=== PATIENT | female | born 1950 | race Caucasian/White ===

== ENCOUNTER 2016-09-08 05:30 | Inpatient (IN) | payer OTHER ==
--- NOTE | 2016-09-06 15:14 | HPE ---
DATE OF ADMISSION: 09/08/2016 CHIEF COMPLAINT: Right knee arthritis. HISTORY OF PRESENT ILLNESS: This is a pleasant 66-year-old female with progressively worsening right knee pain and stiffness. She has failed to improve with conservative treatment. She has elected for surgery for her continued symptoms. She has pain with weightbearing activities and her activities of daily living. X-rays of her knee are notable for advanced osteoarthritis of the right knee joint. She has consented for a right total knee arthroplasty by Dr. Irvin Ramirez. Medical optimization was performed by Kimani HEMPHILL. ALLERGIES: None. CURRENT MEDICATIONS: - atenolol 100 mg a day - Lipitor 40 mg a day - hydrochlorothiazide 10 mg - aspirin 81 mg a day PAST MEDICAL HISTORY: Includes hypertension and high cholesterol. 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 PAST SURGICAL HISTORY: Includes left hip replacement two years ago. FAMILY HISTORY: Noncontributory. REVIEW OF SYSTEMS: This patient denies chest pain, heart palpitations, cough, wheezing, difficulty breathing and shortness of breath. She denies abdominal pain, nausea, vomiting, diarrhea or constipation. She denies recent upper respiratory infection or urinary tract infection symptoms. She does complain of persistent pain in her right knee and pain with weightbearing activities in her right knee. PHYSICAL EXAMINATION: GENERAL: She is a well-nourished, well-developed, in no acute distress, adult female patient. She walks with a moderate limp favoring her right lower extremity. She is not using assistive devices. VITAL SIGNS: She is 5 feet, 3-1/2 inches tall, weighs 150 pounds with a temperature of 98.6, blood pressure 110/78, pulse of 80 and respirations of 16. NECK: Supple without adenopathy or jugular venous distension. There were no carotid bruits appreciated upon auscultation. LUNGS: Clear to auscultation without rales or wheeze throughout. HEART: Regular rate and rhythm. ABDOMEN: Bowel sounds were present. EXTREMITIES: Examination of the knee revealed intact skin. She has decreased range of motion secondary to pain and stiffness. The limb is neurovascularly intact. LABORATORY DATA: Chest x-ray showed no acute cardiopulmonary disease processes. EKG shows sinus rhythm at 69 beats per minute. CBC was within normal limits. Sedimentation rate was 10, glucose 99, BUN 28, creatinine 0.90, sodium 142, potassium 3.8. UA showed trace ketones, 6 white blood cells, 1+ bacteria, otherwise within normal limits with a specific gravity of 1.027. Prothrombin time 13.1, INR 0.98. Nasal and sinus culture showed normal christian. Urine culture showed a contaminated specimen. IMPRESSION: Symptomatic arthritis of the right knee. PLAN: Consented for a right total knee arthroplasty by Dr. Irvin Ramirez.
[~2016-09-08] VITALS: Ht 162.6 cm; Wt 67.1 kg
[~2016-09-08 05:30] MED LIST: ALEV1TAB PO; ALEV220T26 PO; ASPI81TA11; ATEN100T PO; COUM2.5T11 PO; HYDR25TAB PO; LIPI20TA PO; NUCY50TA9 PO; REGL10TA6 PO; TRAM50TA2 PO; TYLE325T5 PO; TYLE500T78 PO; sleep aid OR
[2016-09-08] MEDS ORDERED: LR 1,000 ML IV SCH ×2 (06:00→10:30)
[2016-09-08] MEDS ORDERED: PERCOCET 5MG/325MG TAB PO ONE (06:00)
[2016-09-08] MEDS ORDERED: CelecoXIB 400 MG CAP PO ONE (06:00)
[2016-09-08] MEDS ORDERED: PREGABALIN 75 MG CAP(LYRICA) PO ONE (06:00)
[2016-09-08] MEDS ORDERED: ceFAZolin 1GM INJ (J0690) As Ordered ONE (06:55)
[2016-09-08] MEDS ORDERED: BUPIVACAINE HCL 0.25% 30 ML VIAL As Ordered ONE (07:16)
[2016-09-08] MEDS ORDERED: BUPIVACAINE/EPIN 0.25% 30 ML VIAL As Ordered ONE (07:16)
[2016-09-08] MEDS ORDERED: EPINEPHrine 1MG/ML INJ 30ML MD-VIAL As Ordered ONE (07:17)
[2016-09-08] MEDS ORDERED: TRANEXAMIC ACID 100 MG/ML 10ML VIAL As Ordered ONE (07:17)
[2016-09-08] MEDS ORDERED: fentaNYL 100 MCG/2 ML INJECTION (J3010) As Ordered ONE (07:18)
[2016-09-08] MEDS: MIDAZOLAM INJ 2 MG/2 ML VIAL (J2250) IV PRN ×2 (07:36→07:38)
[2016-09-08] MEDS ORDERED: fentaNYL 100 MCG/2 ML INJECTION (J3010) IV PRN ×2 (08:15→10:30)
[2016-09-08] MEDS ORDERED: PHENYLephrine HCL 500 MCG/5 ML (100MCG/ML) SYRINGE (J2370) As Ordered ONE (08:28)
[2016-09-08] MEDS ORDERED: PROPOFOL 200 MG/20 ML VIAL As Ordered ONE (08:28)
[2016-09-08] MEDS ORDERED: ePHEDrine SULFATE 25 MG/5 ML(5MG/ML) SYRINGE As Ordered ONE ×2 (08:28→08:36)
[2016-09-08] MEDS ORDERED: ONDANSETRON 4MG/2ML VIAL (J2405) As Ordered ONE (08:28)
[2016-09-08] MEDS ORDERED: LIDOCAINE 2% INJ 100 MG/5 ML SDV (FOR ANES.) As Ordered ONE (08:28)
[2016-09-08] MEDS ORDERED: MIDAZOLAM INJ 2 MG/2 ML VIAL (J2250) As Ordered ONE (08:28)
[2016-09-08] MEDS ORDERED: BUPIVACAINE HCL 0.25% 30 ML VIAL XX ONE (08:48)
[2016-09-08] MEDS ORDERED: TRANEXAMIC ACID 100 MG/ML 10ML VIAL XX ONE (08:48)
[2016-09-08] MEDS ORDERED: ceFAZolin 1GM INJ (J0690) IR ONE (08:48)
[2016-09-08] MEDS ORDERED: EPINEPHrine INJ 1 MG/ML 1ML VIAL/AMP XX ONE (08:48)
[2016-09-08] MEDS ORDERED: BUPIVACAINE/EPIN 0.25% 30 ML VIAL XX ONE (08:48)
[2016-09-08] MEDS ORDERED: fentaNYL 100 MCG/2 ML INJECTION (J3010) XX ONE (08:48)
[2016-09-08] MEDS ORDERED: hydroCHLOROthiazide 25 MG TAB PO SCH (09:00)
[2016-09-08] MEDS ORDERED: HYDROmorphone HCL 1 MG/ML SYRINGE (J1170) IV PRN (10:30)
[2016-09-08] MEDS ORDERED: PERCOCET 5MG/325MG TAB PO PRN (10:30)
[2016-09-08] MEDS ORDERED: MORPHINE 2 MG/ML 1ML SYRINGE IV PRN (10:30)
[2016-09-08] MEDS ORDERED: LIDOCAINE 1% MDV 20ML VIAL ONE (10:30)
[2016-09-08] MEDS: D5W/0.45% SODIUM CHLORIDE 1,000 ML IV SCH ×2 (10:30→20:42)
[2016-09-08] MEDS ORDERED: ROPIvacaine 0.5% 30 ML INJECTION (J2795) ONE (10:30)
[2016-09-08] MEDS ORDERED: PATIENT IS CURRENTLY ON AN ON-Q PAIN BUSTER PAIN RELIEF SYSTEM XX SCH (10:30)
[2016-09-08] MEDS ORDERED: ONDANSETRON 4MG/2ML VIAL (J2405) IV PRN (10:30)
[2016-09-08] MEDS ORDERED: MEPIVACAINE HCL 1.5% 30 ML VIAL (J0670) ONE (10:30)
--- NOTE | 2016-09-08 11:07 | CR.PDOC ---
[facility] Consultation Consultation DATE OF CONSULTATION: 09/08/15 PRIMARY CARE PHYSICIAN: Brittany Nichols NP REFERRING PROVIDER: Dr. Ramirez ATTENDING PHYSICIAN: Dr. Ramirez REASON FOR CONSULTATION/CHIEF COMPLAINT: Medical management. HISTORY OF PRESENT ILLNESS: Patient admitted to Dr. Ramirez's service for elective total right knee replacement. The surgery was performed today without any significant complications. Family medicine was consulted for medical management. The patient was seen bedside post-op. She states that she has no acute complaints at this time. ALLERGIES: Please see below. HOME MEDICATIONS: Please see below. PAST MEDICAL HISTORY: HTN Hyperlipidemia Heart Murmur left hip arthritis . PAST SURGICAL HISTORY: Total right knee 09/2016 Tonsillectomy and Adenoids 1956 BTL 1993 left ESTEPHANIA 2013 Colonoscopy 2015 FAMILY HISTORY: Father: alive, unknown Mother: alive, unknown Siblings: alive Son(s): alive, Two sons have HTN Daughter(s): alive Paternal Grand Father: unknown, unknown Paternal Grand Mother: unknown, unknown Maternal Grand Father: , unknown Maternal Grand Mother: , unknown 1 brother(s) , 1 sister(s) - healthy. 3 son(s) , 1 daughter(s) - healthy. pt denies any known family h/o cancer pt is a foster child. SOCIAL HISTORY: Tobacco Use: nonsmoker Recreational drug use denies. Caffeine >5/day coffee. 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 Marital Status: ., Single. Pets: cat. Language: KITTITIAN. Learning Barriers / Special Needs Change from Last Visit? No Barriers to Learning? No Hearing Impaired? No Vision Impaired? No Cognitively Impaired? No Readiness to Learn? Yes Learning Preferences? No Learning Capabilities Present? Yes Emotional Barriers? No Special Devices? No Housing: Self. : yes, single/ . REVIEW OF SYSTEMS: CONSTITUTIONAL: denies fever, chills. HEENT: denies acute vision changes, e.g. flashes, dark spots, double vision. CARDIOVASCULAR: denies chest pain, palpitations. RESPIRATORY: denies SOB or cough. GENITOURINARY: denies dysuria or hematuria. MUSCULOSKELETAL: Previous chronic right knee pain - still numb post op. GASTROINTESTINAL: denies nausea, vomiting, diarrhea, constipation, hematochezia , or melena. NEUROLOGICAL: no focal deficits PSYCHIATRIC: denies depression/anxiety HEMATOLOGIC/LYMPHATIC: no easy bruising or bleeding. PHYSICAL EXAMINATION: VITAL SIGNS: Please see below. GENERAL APPEARANCE: no acute distress. HEENT: EOMI bilat, no sclera icterus. RESPIRATORY: CTA bilat. CARDIOVASCULAR: RRR no murmur,rubs, or gallops appreciated. ABDOMEN: soft, NT, non-distended, positive bowel sounds. EXTREMITIES: no edema, pedal pulses 2+ bilat. NEUROLOGICAL: CN 2-12 grossly intact. PSYCHIATRIC: appropriate mood and affect. LABORATORY DATA: Please see below. ASSESSMENT/PLAN: 1. Total right knee replacement - Patient is now post-op. Will defer pain and post-op management to ortho team. 2. Hypertension - Will restart the patient's home antihypertensives post op. 3. Hyperlipidemia - Will restart her home statin therapy. 4. Heart murmur is listed on her past medical history in [facility], however none was documented on her recent pre-op exam and none appreciated on today's exam either. Vital Signs/I&O Vital Signs Date Time Temp Pulse Resp B/P Pulse Ox O2 Delivery O2 Flow Rate FiO2 09/08/16 10:40 81 18 128/63 97 Room Air 09/08/16 10:25 96.8 09/08/16 07:46 2 Allergies Coded Allergies: No Known Drug Allergy (Verified Allergy, Unknown, 06/26/14) Home Medications Scheduled Atenolol (Atenolol) 100 Mg Tab 100 MG PO QHS (Reported) Atorvastatin Calcium (Lipitor) 20 Mg Tab 40 MG PO QHS (Reported) Hydrochlorothiazide (Hydrochlorothiazide) 25 Mg Tab 25 MG PO DAILY (Reported) Scheduled PRN (Aleve Pm 220-25 mg) 1 Tab Tab 2 TAB PO PRN PRN PRN PAIN (Reported) Acetaminophen (Tylenol Extra Strength) 500 Mg Tab 1,000 MG PO PRN PRN PRN PAIN ( Reported) Tramadol HCl (Tramadol HCl) 50 Mg Tab 50 MG PO PRN PRN PRN PAIN (Reported) Miscellaneous Medications Aspirin (Aspirin Low Dose) 81 Mg Tab (Reported) GME ATTESTATION GME ATTESTATION My preceptor for this patient encounter was physically present in the building during the encounter and was fully available. As needed, all aspects of the patient interview, examination, medical decision making process, and medical care plan development were reviewed and approved by the preceptor. Preceptor is aware and concurs with the plan as stated in the body of this note and will attest to such by his/her cosignature. BABAR MANZANARES DO Sep 08, 2016 11:07
[2016-09-08 13:30] VITALS: BP 122/64
[2016-09-08 14:00] VITALS: BP 127/68
[2016-09-08 15:00] VITALS: BP 129/69
[2016-09-08] MEDS: PROMETHAZINE INJ 25 MG/ML VIAL (J2550) IV PRN ×2 (15:29→22:27)
[2016-09-08] MEDS: HYDROmorphone HCL 1 MG/ML SYRINGE (J1170) IV PRN ×3 (15:29→18:51)
[2016-09-08] MEDS: DOCUSATE SODIUM 100 MG CAP PO SCH ×2 (15:35→20:43)
[2016-09-08 16:00] VITALS: BP 133/65
[2016-09-08 17:00] VITALS: BP 128/68
[2016-09-08] MEDS ORDERED: WARFARIN SOD 1 MG TAB PO ONE (17:00)
[2016-09-08] MEDS ORDERED: MIRALAX *UNIT DOSE* 17GM PACKET PO PRN (18:45)
[2016-09-08] MEDS: ATORVASTATIN 20 MG TAB PO SCH (20:42)
[2016-09-08] MEDS: ATENOLOL 50 MG TAB PO SCH (20:42)
[2016-09-08] MEDS: hydroCHLOROthiazide 25 MG TAB PO SCH (20:43)
[2016-09-08] MEDS: PERCOCET 5MG/325MG TAB PO PRN (21:59)
[2016-09-08 22:00] VITALS: BP 143/67
[2016-09-09 02:00] VITALS: BP 123/61
[2016-09-09] MEDS: D5W/0.45% SODIUM CHLORIDE 1,000 ML IV SCH (03:10)
[2016-09-09 06:00] VITALS: BP 120/59
[2016-09-09 06:59] LABS: MEAN CORPUSCULAR HEMOGLOBIN 30.5 pg (27.0-33.0); MEAN CORPUSCULAR HGB CONC 33.6 g/dl (32.0-36.5); MEAN CORPUSCULAR VOLUME 90.6 fl (80.0-96.0); RED CELL DISTRIBUTION WIDTH 13.2 % (11.5-14.5)
[2016-09-09 07:17] LABS: ALBUMIN 3.4 GM/DL (3.2-5.2); ALBUMIN/GLOBULIN RATIO 1.13 (1.00-1.93); ALKALINE PHOSPHATASE 73 U/L (45-117); ALT/SGPT 40 U/L (12-78); ANION GAP 9 MEQ/L (8-16); AST/SGOT 22 U/L (15-37); BILIRUBIN,TOTAL 0.3 MG/DL (0.2-1.0); BLOOD UREA NITROGEN 13 MG/DL (7-18); CALCIUM LEVEL 8.9 MG/DL (8.8-10.2); CARBON DIOXIDE LEVEL 28 MEQ/L (21-32); CHLORIDE LEVEL 103 MEQ/L (98-107); CREATININE FOR GFR 0.74 MG/DL (0.55-1.02); GLOMERULAR FILTRATION RATE > 60.0 (>45); GLUCOSE, FASTING 112 MG/DL (80-110); POTASSIUM SERUM 3.6 MEQ/L (3.5-5.1); SODIUM LEVEL 140 MEQ/L (136-145); TOTAL PROTEIN 6.4 GM/DL (6.4-8.2)
[2016-09-09] MEDS: PERCOCET 5MG/325MG TAB PO PRN ×4 (08:23→21:29)
[2016-09-09] MEDS: MIRALAX *UNIT DOSE* 17GM PACKET PO SCH (09:00)
[2016-09-09] MEDS: DOCUSATE SODIUM 100 MG CAP PO SCH ×2 (09:00→20:04)
--- NOTE | 2016-09-09 09:35 | REP ---
Right knee series: Two views. History: Evaluate hardware. Findings: The patient is status post right knee arthroplasty. Anterior skin gayle are seen. A pain control catheter device is seen overlying the distal thigh. There is nonarticular spurring on the patella. Prepatellar soft tissue swelling and perioperative soft tissue emphysema are seen. Hardware alignment appears appropriate. Signed by Jack Amador MD 09/09/2016 10:12 A
[2016-09-09 09:51] LABS: INR 1.49
--- NOTE | 2016-09-09 10:18 | RO ---
DATE OF SURGERY: 09/08/2016 PREOPERATIVE DIAGNOSIS: Right knee osteoarthritis. POSTOPERATIVE DIAGNOSIS: Right knee osteoarthritis. PROCEDURE PERFORMED: Right total knee arthroplasty. SURGEON: Dr. Irvin Ramirez LEAD MECHANIC: Carrington Javier PA-C ANESTHESIA: Spinal, Dr. Campbell, the femoral block. COMPLICATIONS: None. ESTIMATED BLOOD LOSS: Less than 60 mL. Tourniquet was utilized. Tourniquet time was 57 minutes at 270 mmHg. COMPONENTS USED: Included DePuy PFC posterior stabilized knee replacement, size 3 femoral component, size 2.5 tibial component, size 12.5 mm posterior stabilized polyethylene spacer, size 35 mm patella button. Radiopaque bone cement was utilized. PainBuster was utilized, containing Marcaine, as well as fentanyl. CONSENT: Reviewed in detail with the patient, including a radha discussion of the pathology involved, the procedure proposed, alternatives such as doing nothing and risks including but not limited to pain, failure, infection, bleeding, blood loss, incomplete relief of symptoms, need for more surgery, stiffness, infection, blood clots, and other issues. The patient wants to proceed. DESCRIPTION OF PROCEDURE: Operative course: Identified in the holding area. Site and side verified. Brought to the operating room after the block was administered. She then had spinal administered and was positioned for exposure of the right knee for arthroplasty. The time-out was accomplished. The patient was sterilely prepped and draped in the usual fashion. We utilized environmental suits. Mr. Javier elevated the leg, and we inflated the tourniquet to 270 mmHg. A midline anterior parapatellar arthrotomy was utilized. We infiltrated the skin incision with 0.25% Marcaine with epinephrine, made the skin incision using a #10 blade knife, and developed down through skin and subcuticular tissues to the extensor mechanism. I made the arthrotomy incision with a #10 blade fresh knife, opening the knee, and was able to briana the patella. A conservative medial release was accomplished. The infrapatellar fat pad was elevated and removed to allow appropriate visualization of the lateral tibial plateau in the superoanterior to the anterior femur just superior to the condyles was cleared for sizing. The knee was placed in the flexed position, the intramedullary guide was installed. We pinned at 10 mm. I placed the appropriate retractors, and Mr. Javier utilized the oscillating saw to make the distal femoral cut. I released the anterior cruciate ligament, and we put the knee in a deeper flexion. We utilized the AP sizing guide for a size 3 knee and put the appropriate nonthreaded pins. We then utilized the four-in-one cutting block, which was secured to the guide pins, as well as with threaded pins. It was appreciated to be well seated. The appropriate Hohmann retractors utilized to protect the collateral ligaments. I made the anterior and posterior cuts. I then removed the nonthreaded pins, and I made the chamfer cuts, and re-cut the anterior cut to be sure. This guide apparatus was then removed, and attention was turned to the tibial side, where the extramedullary tibial alignment jig was applied, -4 off the bad side and -10 off the good side. Alignment was based on the ankle and second ray. It was pinned into place. We verified the alignment after the guide was removed with the drop lizzy. The cutting jig was then advanced to the anterior surface of the tibia. Nona Javier protected the collateral ligaments with Hohmann retractors while I utilized the oscillating saw to implement the tibial cut. The proximal tibia was removed using a hot knife and a . and rakes were utilized to expose the lateral meniscus, which I then removed using a #15 blade knife, and I removed osteophyte from the posterolateral femoral condyle using the osteotome and the Guzman-Ng. Similarly, the contralateral side was approached in the same fashion. We utilized flexion extension blocks to fit the 12.5 as providing good stability in both flexion and extension. Once this was accomplished, the femoral notch guide was applied by me and pinned into place by Mr. Javier while I held it. I then utilized the oscillating saw to make the notch cut. Nona Javier made the proximal cut using an oscillating sawblade. The guide was then removed, and trial femoral component was installed, followed by installation of the tray and trial tibial component. The knee was placed through a range of motion, and it was appreciated to be stable in flexion and extension, and the rotational alignment was marked. The patella was everted. I applied the and the piercing clamp and made the posterior patellar cut using the oscillating saw. The patella was sized for a 35 mm button, which was cut, and the trial installed. The knee was again placed through a range of motion, and the patella appeared to be stable. At this point, all trial components were removed, and Mr. Javier stepped to the back table to prepare the bone cement. I placed retractors and irrigated the knee using pulse lavage and dried the surfaces. When the cement was the appropriate consistency, we installed the cemented tibial component, cleared excess cement using curettes. We then installed the femoral component, applying cement to the distal femur, and removing excess cement using curettes after this femur was tamped down. The nontrial femur was tamped down with the nylon impactor. The 12.5 mm nontrial tibial tray was placed and installed with the nylon impactor, and the knee was then placed in the extended position with a bump under the midcalf. The patella everted, again dried, and cement and the patella button were installed and secured with the patella clamps. Excess cement was cleared using curettes. Irrigation was accomplished using pulse lavage, and the tranexamic acid (TXA) solution was installed to the knee and allowed to stand for 1 minute. Once the cement had hardened to the appropriate consistency, we then removed the patella clamp and repaired the arthrotomy using #1 Vicryl stitch, several interrupted stitches at the proximal midportion and distal end, followed by use of the #1 Stratafix running stitch, which was installed by and Mr. Javier. Deep dermis was approximated with interrupted stitch, followed by skin gayle. A sterile dressing was applied. Tourniquet was deflated at 57 minutes. The patient was moved to recovery room in good condition. For further details, please refer to the medical record.
[2016-09-09] MEDS: ONDANSETRON 4 MG TAB (S0181) PO PRN ×2 (12:13→17:02)
[2016-09-09] MEDS: SENNA 8.6 MG TAB (SENOKOT) PO PRN (12:13)
--- NOTE | 2016-09-09 13:30 | IPNPDOC ---
Assessment/Plan Date Seen The patient was seen on 09/09/16. Problems Problems: (1) Status post right knee replacement Status: Acute Problem Text: Patient is now post op day two. She has been working with PT well. Will continue to defer management to ortho. (2) HTN (hypertension) Status: Chronic Problem Text: BP controlled. Will continue current home antihypertensives ( atenolol and HCTZ) (3) HLD (hyperlipidemia) Status: Chronic Problem Text: Continue home statin therapy. (atorvastatin) Plan / VTE VTE Prophylaxis Ordered?: Yes Subjective Review of Systems CC/HPI The patient is a 66-year-old female admitted with a reason for visit of Arthritis Right Knee. Events since last encounter Patient seen at bedside this morning. She states that she is doing well and has no acute complaints today. She has been working with PT to walk around. She did have a brief episode of dizziness just after sitting down from working with PT. She thinks it likely to have been from pushing herself too hard when walking. She did also take a percocet shortly before, which could also contribute to it. She has never had one before and it has not recurred. Constitutional: Denies: Chills, Fever, Malaise Pulmonary: Denies: Cough, Dyspnea Cardiovascular: Denies: Chest Pain, Palpitations Gastrointestinal: Denies: Abdominal Pain, Constipation, Diarrhea, Hematochezia , Melena, Nausea, Vomiting Genitourinary: Denies: Hematuria Musculoskeletal: Denies: Arm Pain, Back Pain, Foot Pain, Hand Pain, Joint Pain , Leg Pain, Muscle Pain, Neck Pain, Shoulder Pain Neurological: Denies: Change in speech, Confusion Psych: Reports: Mood Normal Objective Physical Examination General Exam: Positive: Alert, Cooperative, No Acute Distress Eye Exam: Positive: PERRLA ENT Exam: Positive: Atraumatic, Mucous membr. moist/pink Neck Exam: Positive: Supple Chest Exam: Positive: Clear to auscultation, Normal air movement Heart Exam: Positive: Rate Normal, Regular Rhythm, Negative: Murmurs Abdomen Exam: Positive: Normal bowel sounds, Soft, Negative: Tenderness Extremity Exam: Positive: Normal pulses, Negative: Edema Neuro Exam: Positive: Cranial Nerves 3-12 NL Psych Exam: Positive: Oriented x 3 Vital Signs/I&O Vital Signs Date Time Temp Pulse Resp B/P Pulse Ox O2 Delivery O2 Flow Rate FiO2 09/09/16 13:13 18 09/09/16 12:15 Room Air 09/09/16 06:00 99.1 70 120/59 96 09/08/16 07:46 2 I&O- Last 24 Hours up to 6 AM 09/09/16 06:00 Intake Total 5450 ml Output Total 4525 ml Balance 925 ml Laboratory Data Labs 24H Laboratory Tests 2 09/09/16 06:39: Blood Urea Nitrogen 13, Creatinine 0.74, Sodium Level 140, Potassium Level 3.6, Chloride Level 103, Carbon Dioxide Level 28, Calcium Level 8.9, Aspartate Amino Transf (AST/SGOT) 22, Alanine Aminotransferase (ALT/SGPT) 40, Alkaline Phosphatase 73, Total Bilirubin 0.3, Total Protein 6.4, Albumin 3.4, Albumin/ Globulin Ratio 1.13, Anion Gap 9, Glomerular Filtration Rate > 60.0, Prothromb Time International Ratio 1.49, Prothrombin Time 18.1H CBC/BMP Laboratory Tests 09/09/16 06:39 Calcium Level 8.9, Aspartate Amino Transf (AST/SGOT) 22, Alanine Aminotransferase (ALT/SGPT) 40, Alkaline Phosphatase 73, Total Bilirubin 0.3, Total Protein 6.4, Albumin 3.4, Red Blood Count 3.94 L, Mean Corpuscular Volume 90.6, Mean Corpuscular Hemoglobin 30.5, Mean Corpuscular Hemoglobin Concent 33.6 , Red Cell Distribution Width 13.2 GME ATTESTATION GME ATTESTATION My preceptor for this patient encounter was physically present in the building during the encounter and was fully available. As needed, all aspects of the patient interview, examination, medical decision making process, and medical care plan development were reviewed and approved by the preceptor. Preceptor is aware and concurs with the plan as stated in the body of this note and will attest to such by his/her cosignature. BABAR MANZANARES DO Sep 09, 2016 13:30
[2016-09-09 14:00] VITALS: BP 116/59
[2016-09-09] MEDS ORDERED: WARFARIN SOD 5 MG TAB PO ONE (17:00)
[2016-09-09 20:03] VITALS: BP 116/59
[2016-09-09] MEDS: ATENOLOL 50 MG TAB PO SCH (20:03)
[2016-09-09] MEDS: ATORVASTATIN 20 MG TAB PO SCH (20:04)
[2016-09-09] MEDS: hydroCHLOROthiazide 25 MG TAB PO SCH (20:04)
[2016-09-09 22:00] VITALS: BP 115/59
[2016-09-10] MEDS: PERCOCET 5MG/325MG TAB PO PRN ×4 (03:34→17:43)
[2016-09-10] MEDS: ONDANSETRON 4 MG TAB (S0181) PO PRN ×4 (05:33→17:43)
[2016-09-10 06:00] VITALS: BP 134/64
[2016-09-10 07:19] LABS: INR 1.63
[2016-09-10] MEDS: MIRALAX *UNIT DOSE* 17GM PACKET PO SCH (08:22)
[2016-09-10] MEDS: DOCUSATE SODIUM 100 MG CAP PO SCH ×2 (08:23→20:13)
[2016-09-10] MEDS ORDERED: ONDANSETRON 4 MG TAB (S0181) PO PRN (08:30)
[2016-09-10] MEDS ORDERED: COUM2.5T11 PO (08:36)
[2016-09-10] MEDS ORDERED: PERC5TAB6 PO (08:36)
[2016-09-10] MEDS ORDERED: ZOFR20TA PO (08:36)
--- NOTE | 2016-09-10 10:11 | IPNPDOC ---
Assessment/Plan Date Seen The patient was seen on 09/10/16. Problems Problems: (1) Status post right knee replacement Status: Acute Problem Text: Patient is now post op day 3. She has been working with PT well. Will continue to defer management to ortho. Zofran was ordered by orthopedics, so she should be fine with continuing by mouth Percocet. - Discharge planning for 09/11/2016 (2) HTN (hypertension) Status: Chronic Problem Text: BP controlled. Will continue current home antihypertensives ( atenolol and HCTZ) (3) HLD (hyperlipidemia) Status: Chronic Problem Text: Continue home statin therapy. (atorvastatin) Plan / VTE VTE Prophylaxis Ordered?: Yes Disposition Disposition per orthopedics, but likely 09/11/2016 Subjective Review of Systems CC/HPI The patient is a 66-year-old female admitted with a reason for visit of Arthritis Right Knee. Events since last encounter Patient's only complaint today is nausea when she takes Percocet. She has been up and about with a walker, and is doing well. She expects to be discharged tomorrow. She has no other complaints or concerns. Constitutional: Denies: Chills, Fever Skin: Denies: Rash Pulmonary: Denies: Cough, Dyspnea Cardiovascular: Denies: Chest Pain, Palpitations Gastrointestinal: Reports: Nausea (with Percocet), Denies: Abdominal Pain, Constipation, Diarrhea, Vomiting Genitourinary: Denies: Dysuria Hematologic: Denies: Bruising Other systems 10 point review systems is otherwise negative Objective Physical Examination General Exam: Positive: Alert, Cooperative, No Acute Distress Eye Exam: Positive: PERRLA ENT Exam: Positive: Atraumatic, Mucous membr. moist/pink Neck Exam: Positive: Supple Chest Exam: Positive: Clear to auscultation, Normal air movement Heart Exam: Positive: Rate Normal, Regular Rhythm, Negative: Murmurs Abdomen Exam: Positive: Normal bowel sounds, Soft, Negative: Tenderness Extremity Exam: Positive: Normal pulses, Negative: Edema Neuro Exam: Positive: Cranial Nerves 3-12 NL Psych Exam: Positive: Oriented x 3 Vital Signs/I&O Vital Signs Date Time Temp Pulse Resp B/P Pulse Ox O2 Delivery O2 Flow Rate FiO2 09/10/16 08:54 18 09/10/16 06:00 97.2 63 134/64 94 Room Air 09/08/16 07:46 2 I&O- Last 24 Hours up to 6 AM 09/10/16 06:00 Intake Total 1740 ml Output Total 900 ml Balance 840 ml Laboratory Data Labs 24H Laboratory Tests 2 09/10/16 06:28: Prothromb Time International Ratio 1.63, Prothrombin Time 19.4H ANTHONY ALBERTO MD Sep 10, 2016 10:11
[2016-09-10 14:00] VITALS: BP 137/67
[2016-09-10] MEDS: hydroCHLOROthiazide 25 MG TAB PO SCH (20:13)
[2016-09-10] MEDS: SENNA 8.6 MG TAB (SENOKOT) PO PRN (20:13)
[2016-09-10] MEDS: ATENOLOL 50 MG TAB PO SCH (20:14)
[2016-09-10] MEDS: ATORVASTATIN 20 MG TAB PO SCH (20:14)
[2016-09-10 22:00] VITALS: BP 109/55
[2016-09-11] MEDS: PERCOCET 5MG/325MG TAB PO PRN ×2 (02:13→06:58)
[2016-09-11] MEDS: ONDANSETRON 4 MG TAB (S0181) PO PRN ×2 (02:14→06:56)
[2016-09-11 06:00] VITALS: BP 119/67
[2016-09-11 08:01] LABS: INR 1.53
--- NOTE | 2016-09-11 08:24 | IPNPDOC ---
Assessment/Plan Date Seen The patient was seen on 09/11/16. Problems Problems: (1) Status post right knee replacement Status: Acute Problem Text: Patient is now post op day 4 with plan for discharge today. She has been working with PT well. Will continue to defer management to ortho. Ivetfran was ordered by orthopedics, so she should be fine with continuing by mouth Percocet. (2) HTN (hypertension) Status: Chronic Problem Text: BP controlled. Will continue current home antihypertensives ( atenolol and HCTZ) (3) HLD (hyperlipidemia) Status: Chronic Problem Text: Continue home statin therapy. (atorvastatin) Plan / VTE VTE Prophylaxis Ordered?: Yes Subjective Review of Systems CC/HPI The patient is a 66-year-old female admitted with a reason for visit of Arthritis Right Knee. General: Denies: Chills Constitutional: Denies: Fever ENT: Denies: Head Aches Pulmonary: Denies: Dyspnea Cardiovascular: Denies: Chest Pain, Palpitations Gastrointestinal: Reports: Nausea, Denies: Abdominal Pain, Vomiting Objective Physical Examination General Exam: Positive: Alert, Cooperative, No Acute Distress Eye Exam: Positive: PERRLA ENT Exam: Positive: Atraumatic Chest Exam: Positive: Clear to auscultation, Normal air movement Heart Exam: Positive: Rate Normal, Regular Rhythm, Negative: Murmurs Abdomen Exam: Positive: Normal bowel sounds, Soft, Negative: Tenderness Extremity Exam: Positive: Normal pulses, Negative: Edema Neuro Exam: Positive: Cranial Nerves 3-12 NL Psych Exam: Positive: Oriented x 3 Vital Signs/I&O Vital Signs Date Time Temp Pulse Resp B/P Pulse Ox O2 Delivery O2 Flow Rate FiO2 09/11/16 07:14 Room Air 09/11/16 06:58 16 09/11/16 06:00 98.2 95 119/67 96 09/08/16 07:46 2 I&O- Last 24 Hours up to 6 AM 09/11/16 06:00 Intake Total 1860 ml Output Total 800 ml Balance 1060 ml Laboratory Data Labs 24H Laboratory Tests 2 09/11/16 07:18: Prothromb Time International Ratio 1.53, Prothrombin Time 18.5H ISABEL CHILD MD Sep 11, 2016 08:24
[2016-09-11] MEDS: MIRALAX *UNIT DOSE* 17GM PACKET PO SCH (09:00)
[2016-09-11] MEDS: DOCUSATE SODIUM 100 MG CAP PO SCH (09:00)
--- NOTE | 2016-09-13 10:32 | DSES ---
DATE OF ADMISSION: 09/08/2016 DATE OF DISCHARGE: 09/11/2016 ADMITTING DIAGNOSIS: Symptomatic right knee osteoarthritis. DISCHARGE DIAGNOSIS: Status post right total knee arthroplasty. HISTORY OF PRESENT ILLNESS: This is a pleasant female with continuing symptomatic right knee osteoarthritis. She consented for right total knee arthroplasty per Dr. Irvin Ramirez. Medically was optimized per Dr. Saeed. X-rays were consistent with advanced osteoarthritis. OPERATION PERFORMED: Right total knee arthroplasty. HOSPITAL COURSE: The patient uneventfully underwent right total knee arthroplasty under spinal anesthesia and was returned to recovery comfortable. Our hospital team determined that the patient could be discharged on 09/11/2016 with the following instructions. Weightbearing as tolerated right lower extremity with walker. Coumadin and thromboembolic deterrent (YOU) stockings times 30 days. Percocet as needed, pain. Diet is regular. Optifoam dressing change in 4 days time. Followup in orthopedics clinic in 12-14 days for wound check, staple removal. Patient is encouraged to contact our office sooner with increased redness, bleeding, drainage, numbness and tingling down the lower extremity, increased pain, fever greater than 101 or further concerns.
== END 2016-09-11 10:25 | disposition home health service (06) | DRG 302 ==
LOC: M OR 05:30 → M MS5PR 13:10
PROVIDERS: ADMIT Orthopaedic Surgery; ATTEND Orthopaedic Surgery
PROC: 0SRC0J9 Replacement of Right Knee Joint with Synthetic Substitute, Cemented, Open Approach (ICD-10-PCS; principal; 2016-09-08 07:30)
DX: M17.11 Unilateral primary osteoarthritis, right knee (principal); I10 Essential (primary) hypertension; Z79.82 Long term (current) use of aspirin; Z79.899 Other long term (current) drug therapy; E78.5 Hyperlipidemia, unspecified

== ENCOUNTER → 2016-09-14 | Outpatient (REF) | payer OTHER ==
[~2016-09-14] MED LIST changes: +PERC5TAB6 PO; +ZOFR20TA PO
[2016-09-14 14:19] LABS: INR 2.45
== END ==
LOC: M SHH 13:30
PROVIDERS: ATTEND Nurse Practitioner Family
DX: Z51.81 Encounter for therapeutic drug level monitoring (principal); Z79.01 Long term (current) use of anticoagulants

== ENCOUNTER → 2016-09-18 | Outpatient (REF) | payer OTHER ==
[2016-09-18 13:30] LABS: INR 1.74
== END ==
LOC: M SHH 12:58
PROVIDERS: ATTEND Nurse Practitioner Family
DX: Z51.81 Encounter for therapeutic drug level monitoring (principal); Z79.01 Long term (current) use of anticoagulants

== ENCOUNTER → 2016-09-21 | Outpatient (REF) | payer OTHER ==
[2016-09-21 13:01] LABS: INR 1.66
== END ==
LOC: M SHH 12:21
PROVIDERS: ATTEND Nurse Practitioner Family
DX: Z51.81 Encounter for therapeutic drug level monitoring (principal); Z79.01 Long term (current) use of anticoagulants

== ENCOUNTER → 2016-09-25 | Outpatient (REF) | payer OTHER ==
[2016-09-25 10:15] LABS: INR 2.2
== END ==
LOC: M LABDRAW1 09:25
PROVIDERS: ATTEND Nurse Practitioner Family
DX: Z51.81 Encounter for therapeutic drug level monitoring (principal); Z79.01 Long term (current) use of anticoagulants

== ENCOUNTER → 2016-09-28 | Outpatient (REF) | payer OTHER ==
[2016-09-28 12:03] LABS: INR 2.11
== END ==
LOC: M LABDRAW1 11:33
PROVIDERS: ATTEND Nurse Practitioner Family
DX: Z51.81 Encounter for therapeutic drug level monitoring (principal); Z79.01 Long term (current) use of anticoagulants

== ENCOUNTER → 2016-10-02 | Outpatient (REF) | payer OTHER ==
[2016-10-02 10:01] LABS: INR 1.89
== END ==
LOC: M LABDRAW1 09:22
PROVIDERS: ATTEND Nurse Practitioner Family
DX: Z51.81 Encounter for therapeutic drug level monitoring (principal); Z79.01 Long term (current) use of anticoagulants

== ENCOUNTER → 2016-10-05 | Outpatient (REF) | payer OTHER ==
[2016-10-05 10:09] LABS: INR 1.74
== END ==
LOC: M LABDRAW1 09:31
PROVIDERS: ATTEND Nurse Practitioner Family
DX: Z51.81 Encounter for therapeutic drug level monitoring (principal); Z79.01 Long term (current) use of anticoagulants

== ENCOUNTER → 2017-07-31 | Outpatient (REF) | payer MEDICARE, OTHER ==
[~2017-07-31] MED LIST changes: +ASPI-101; -ASPI81TA11; -COUM2.5T11 PO; +COUM2.5T17 PO; +NUCY50TA6 PO; -NUCY50TA9 PO; +PERC5TAB12 PO; -PERC5TAB6 PO
[2017-07-31 12:59] LABS: ALBUMIN/GLOBULIN RATIO 1.33 (1.00-1.93); ALKALINE PHOSPHATASE 86 U/L (45-117); ALT/SGPT 89 U/L (12-78); ANION GAP 9 MEQ/L (8-16); AST/SGOT 54 U/L (7-37); BILIRUBIN,TOTAL 0.5 MG/DL (0.2-1.0); BLOOD UREA NITROGEN 19 MG/DL (7-18); CALCIUM LEVEL 9.2 MG/DL (8.8-10.2); CARBON DIOXIDE LEVEL 29 MEQ/L (21-32); CHLORIDE LEVEL 101 MEQ/L (98-107); CHOLESTEROL LEVEL 200 MG/DL (<200); FREE T4 1.22 NG/DL (0.76-1.46); GLOMERULAR FILTRATION RATE > 60.0 (>45); GLUCOSE, FASTING 96 MG/DL (80-110); POTASSIUM SERUM 3.7 MEQ/L (3.5-5.1); SODIUM LEVEL 139 MEQ/L (136-145); TRIGLYCERIDES LEVEL 90 MG/DL (<150)
== END ==
LOC: M LABDRAW1 10:17
PROVIDERS: ATTEND Nurse Practitioner Family
DX: E78.5 Hyperlipidemia, unspecified (principal); I10 Essential (primary) hypertension

== ENCOUNTER → 2017-08-06 | Outpatient (REF) | payer MEDICARE, MEDICAID ==
[2017-08-06 14:21] LABS: ALBUMIN 4.1 GM/DL (3.2-5.2); ALBUMIN/GLOBULIN RATIO 1.28 (1.00-1.93); ALKALINE PHOSPHATASE 97 U/L (45-117); ALT/SGPT 77 U/L (12-78); ANION GAP 9 MEQ/L (8-16); AST/SGOT 49 U/L (7-37); BILIRUBIN,TOTAL 0.3 MG/DL (0.2-1.0); BLOOD UREA NITROGEN 19 MG/DL (7-18); CALCIUM LEVEL 9.5 MG/DL (8.8-10.2); CARBON DIOXIDE LEVEL 30 MEQ/L (21-32); CHLORIDE LEVEL 103 MEQ/L (98-107); CREATININE FOR GFR 0.77 MG/DL (0.55-1.02); GLOMERULAR FILTRATION RATE > 60.0 (>45); GLUCOSE, FASTING 107 MG/DL (80-110); POTASSIUM SERUM 3.8 MEQ/L (3.5-5.1); SODIUM LEVEL 142 MEQ/L (136-145); TOTAL PROTEIN 7.3 GM/DL (6.4-8.2)
== END ==
LOC: M SFHCPLAZ 11:22
PROVIDERS: ATTEND Nurse Practitioner Family
DX: I10 Essential (primary) hypertension (principal)
CPT/HCPCS: 80053; G0463

== ENCOUNTER → 2017-08-07 | Outpatient (CLI) | payer MEDICARE, MEDICAID ==
--- NOTE | 2017-08-08 06:19 | REP ---
CHEST X-RAY: CLINICAL: Dyspnea on exertion. TECHNIQUE: PA and lateral. COMPARISON: 08/29/2016. FINDINGS: Mediastinum and cardiac silhouette are normal. Lung milton demonstrate chronic interstitial changes without acute consolidation, effusion or pneumothorax. Skeletal structures are intact. Degenerative changes to the thoracic spine noted. IMPRESSION: Chronic stable changes. No acute cardiopulmonary process or focal consolidation. Unreviewed
== END ==
LOC: M LAB 09:55
PROVIDERS: ATTEND Nurse Practitioner Family
DX: R06.09 Other forms of dyspnea (principal)

== ENCOUNTER → 2017-09-12 | Outpatient (CLI) | payer MEDICARE | LOC: M WUC 11:15 | DX: M25.561 Pain in right knee (principal) | CPT/HCPCS: 73564 ==

== ENCOUNTER → 2018-02-04 | Outpatient (REF) | payer OTHER, MEDICAID ==
[2018-02-04 16:39] LABS: ALBUMIN/GLOBULIN RATIO 1.38 (1.00-1.93); ALKALINE PHOSPHATASE 90 U/L (45-117); ALT/SGPT 35 U/L (12-78); ANION GAP 7 MEQ/L (8-16); AST/SGOT 28 U/L (7-37); BILIRUBIN,TOTAL 0.4 MG/DL (0.2-1.0); BLOOD UREA NITROGEN 14 MG/DL (7-18); CALCIUM LEVEL 9.3 MG/DL (8.8-10.2); CARBON DIOXIDE LEVEL 29 MEQ/L (21-32); CHLORIDE LEVEL 104 MEQ/L (98-107); CREATININE FOR GFR 0.69 MG/DL (0.55-1.30); GLOMERULAR FILTRATION RATE > 60.0 (>45); GLUCOSE, FASTING 85 MG/DL (70-100); POTASSIUM SERUM 3.7 MEQ/L (3.5-5.1); SODIUM LEVEL 140 MEQ/L (136-145); TOTAL PROTEIN 6.9 GM/DL (6.4-8.2)
== END ==
LOC: M SFHCPLAZ 14:18
DX: I10 Essential (primary) hypertension (principal)

== ENCOUNTER → 2018-05-17 | Outpatient (REF) | payer MEDICARE, OTHER, MEDICAID ==
[2018-05-22 14:17] LABS: HPV HYBRID CAPTURE II Negative (Negative)
== END ==
LOC: M SFHCPLAZ 15:37
DX: Z12.4 Encounter for screening for malignant neoplasm of cervix (principal)
CPT/HCPCS: 88142; G0123

== ENCOUNTER → 2018-07-11 | Outpatient (REF) | payer MEDICARE, MEDICAID ==
[2018-07-11 12:14] LABS: ALBUMIN 4.2 GM/DL (3.2-5.2); ALKALINE PHOSPHATASE 72 U/L (45-117); ALT/SGPT 39 U/L (12-78); ANION GAP 7 MEQ/L (8-16); AST/SGOT 27 U/L (7-37); BILIRUBIN,TOTAL 0.5 MG/DL (0.2-1.0); BLOOD UREA NITROGEN 15 MG/DL (7-18); CALCIUM LEVEL 9.3 MG/DL (8.8-10.2); CARBON DIOXIDE LEVEL 29 MEQ/L (21-32); CHLORIDE LEVEL 101 MEQ/L (98-107); CHOLESTEROL LEVEL 208 MG/DL (<200); CHOLESTEROL RISK RATIO 2.506 (<5); CREATININE FOR GFR 0.76 MG/DL (0.55-1.30); FREE T4 1.17 NG/DL (0.76-1.46); GLOMERULAR FILTRATION RATE > 60.0 (>45); GLUCOSE, FASTING 114 MG/DL (70-100); HDL CHOLESTEROL 83 MG/DL (>40); LDL CHOLESTEROL 102 MG/DL (<100); NON-HDL-C 125 MG/DL; POTASSIUM SERUM 3.8 MEQ/L (3.5-5.1); SODIUM LEVEL 137 MEQ/L (136-145); TRIGLYCERIDES LEVEL 114 MG/DL (<150)
== END ==
LOC: M LABDRAW1 09:25
DX: I10 Essential (primary) hypertension (principal); E78.5 Hyperlipidemia, unspecified
CPT/HCPCS: 84443

== ENCOUNTER → 2018-07-29 | Outpatient (REF) | payer MEDICARE, MEDICAID ==
[2018-07-31 00:50] LABS: H PYLORI STOOL ANTIGEN Negative (Negative)
== END ==
LOC: M SFHCPLAZ 09:14
DX: K21.9 Gastro-esophageal reflux disease without esophagitis (principal)
CPT/HCPCS: 87338

== ENCOUNTER → 2018-08-01 | Outpatient (CLI) | payer MEDICARE | LOC: M WHC 13:09 | DX: Z13.820 Encounter for screening for osteoporosis (principal); Z78.0 Asymptomatic menopausal state | CPT/HCPCS: 77080 ==

== ENCOUNTER → 2018-10-30 | Outpatient (CLI) | payer OTHER, MEDICAID ==
[~2018-10-30] MED LIST changes: -ASPI-101; +ASPI-225; +NUCY50TA19 PO; -NUCY50TA6 PO; -ZOFR20TA PO; +ZOFR4TAB16 PO
--- NOTE | 2018-10-30 10:31 | REP ---
Bilateral shoulder series: Six views. History: Pain. Findings: There is moderate osteoarthritic spurring at the glenohumeral joints bilaterally, right a little more prominently than left. There is mild osteoarthritic hypertrophy at the AC joints. The articulations are normally aligned bilaterally. There is subcortical cyst formation visible in each humeral head associated with the arthropathy. No erosive change is seen. Clothing artifact is noted bilaterally. Impression: Moderate bilateral glenohumeral osteoarthritis. Mild osteoarthritic hypertrophy at the AC joints. Electronically Signed by Jack Amador MD 10/30/2018 03:20 P
== END ==
LOC: M RAD 08:39
PROVIDERS: ATTEND Nurse Practitioner Family
DX: M25.511 Pain in right shoulder (principal); M25.512 Pain in left shoulder

== ENCOUNTER → 2019-03-19 | Outpatient (REF) | payer OTHER, MEDICAID, MEDICARE ==
[~2019-03-19] MED LIST changes: -ASPI-225; +ASPI81TA78; +HYDR-2541 PO
[2019-03-19 11:06] LABS: ALT/SGPT 40 U/L (12-78); BILIRUBIN,TOTAL 0.5 MG/DL (0.2-1.0); BLOOD UREA NITROGEN 15 MG/DL (7-18); CALCIUM LEVEL 9.2 MG/DL (8.8-10.2); CARBON DIOXIDE LEVEL 29 MEQ/L (21-32); CHLORIDE LEVEL 101 MEQ/L (98-107); CREATININE FOR GFR 0.84 MG/DL (0.55-1.30); GLOMERULAR FILTRATION RATE > 60.0 (>45); GLUCOSE, FASTING 107 MG/DL (70-100); POTASSIUM SERUM 3.9 MEQ/L (3.5-5.1); SODIUM LEVEL 137 MEQ/L (136-145)
== END ==
LOC: M LABDRAW1 08:13
PROVIDERS: ATTEND Nurse Practitioner Family
DX: I10 Essential (primary) hypertension (principal); E78.5 Hyperlipidemia, unspecified

== ENCOUNTER → 2019-05-12 | Outpatient (CLI) | payer MEDICARE, MEDICAID ==
[~2019-05-12] MED LIST changes: +ASPI-225; -ASPI81TA78
--- NOTE | 2019-05-12 09:12 | REPMRS ---
Patient History The patient states she has not had a clinical breast exam in over a year. Patient is postmenopausal. No known family history of cancer. Took hormonal contraceptives for 2 years. 3D TOMOSYNTHESIS WAS PERFORMED. [facility] lifetime risk for breast cancer is 4.7%. Digital Woman Screen Mammo: May 12, 2019 - Exam #: [id number] Bilateral CC and MLO view(s) were taken. Technologist: Tracy Gallardo Technologist Prior study comparison: May 02, 2018, bilateral digital woman screen mammo performed at [facility]. FINDINGS: The breast tissue is heterogeneously dense. This may lower the sensitivity of mammography. There has been no change in the appearance of the mammogram from the prior studies. There is a moderate amount of residual fibroglandular tissue which is fairly symmetric. There is no interval development of dominant mass, areas of architectural distortion, or clustered microcalcification typical of malignancy. Assessment: BI-RADS/ACR category 1 mammogram. Negative Mammogram. Recommendation Routine screening mammogram in 1 year (for women over age 40). This mammogram was interpreted with the aid of an FDA-approved computer-aided dectection system. Electronically Signed By: John Zamarripa MD 05/12/19 0911
== END ==
LOC: M WHC 07:34
PROVIDERS: ATTEND Nurse Practitioner Family
DX: Z12.31 Encounter for screening mammogram for malignant neoplasm of breast (principal)

== ENCOUNTER 2019-11-10 14:04 | Observation (INO) | payer MEDICARE, MEDICAID ==
[~2019-11-10] VITALS: Ht 162.6 cm; Wt 77.7 kg
[~2019-11-10 14:04] MED LIST changes: -ADVI200T17 PO; -ASPI81TA85 PO; -ATEN50TA2 PO; -ATOR40TA75 PO; -HM P99TA PO; -LOSA25TA14 PO; -MELA10CA2 PO; -OMEP-221 PO; -TURM500C PO
[2019-11-10] MEDS ORDERED: ACETAMINOPHEN TAB 650MG DOSE (2X325MG) PO ONE (14:30)
[2019-11-10 14:54] LABS: BASO % 0.2 % (0.0-1.0); EOS # 0.2 10^3/uL (0.0-0.5); EOS % 2.4 % (0.0-3.0); HEMATOCRIT 37.7 % (36.0-47.0); HEMOGLOBIN 13.2 g/dl (12.0-15.5); LYMPH # 2.3 10^3/uL (1.5-5.0); LYMPH % 28.2 % (24.0-44.0); MEAN CORPUSCULAR HEMOGLOBIN 30.1 pg (27.0-33.0); MEAN CORPUSCULAR VOLUME 86.1 fl (80.0-96.0); MONO # 0.6 10^3/uL (0.0-0.8); MONO % 7.9 % (0.0-5.0); NEUTROPHILS # 4.9 10^3/uL (1.5-8.5); NEUTROPHILS % 60.9 % (36.0-66.0); PLATELET COUNT, AUTOMATED 259 10^3/uL (150-450); RED BLOOD COUNT 4.38 10^6/uL (4.00-5.40); WHITE BLOOD COUNT 8.1 10^3/uL (4.0-10.0)
[2019-11-10] MEDS ORDERED: TURM500C PO (15:10)
[2019-11-10] MEDS ORDERED: ASPI81TA85 PO (15:10)
[2019-11-10] MEDS ORDERED: MELA10CA2 PO (15:10)
[2019-11-10] MEDS ORDERED: ATOR40TA75 PO (15:10)
[2019-11-10] MEDS ORDERED: LOSA25TA14 PO (15:10)
[2019-11-10] MEDS ORDERED: ADVI200T17 PO (15:10)
[2019-11-10] MEDS ORDERED: OMEP-221 PO (15:10)
[2019-11-10] MEDS ORDERED: ATEN50TA2 PO (15:10)
[2019-11-10] MEDS ORDERED: HM P99TA PO (15:10)
[2019-11-10 15:24] LABS: BLOOD UREA NITROGEN 9 MG/DL (7-18); CALCIUM LEVEL 9.1 MG/DL (8.8-10.2); CARBON DIOXIDE LEVEL 33 MEQ/L (21-32); CHLORIDE LEVEL 101 MEQ/L (98-107); CREATININE FOR GFR 0.92 MG/DL (0.55-1.30); GLOMERULAR FILTRATION RATE > 60.0 (>45); GLUCOSE, FASTING 127 MG/DL (70-100); MAGNESIUM LEVEL 1.7 MG/DL (1.8-2.4); PHOSPHORUS LEVEL 1.6 MG/DL (2.5-4.9); POTASSIUM SERUM 2.5 MEQ/L (3.5-5.1); SODIUM LEVEL 141 MEQ/L (136-145)
[2019-11-10] MEDS ORDERED: KCL 10MEQ/100ML SWI (KRUN) 10 MEQ in IV 1 EA IV ONE (15:30)
[2019-11-10] MEDS ORDERED: POTASSIUM CHLORIDE 10 MEQ SR TABLET PO ONE ×2 (15:30→23:45)
[2019-11-10] MEDS ORDERED: MOM 30ML SUSPENSION UDC PO PRN (16:15)
[2019-11-10] MEDS ORDERED: ACETAMINOPHEN TAB 650MG DOSE (2X325MG) PO PRN (16:15)
[2019-11-10] MEDS ORDERED: MAALOX 30 ML SUSP *UDC PO PRN (16:15)
--- NOTE | 2019-11-10 16:44 | HPEPDOC ---
General Date of Admission Nov 10, 2019 at 14:05 Date of Service: Nov 10, 2019 Chief Complaint The patient is a 69-year-old female admitted with a reason for visit of Hypokalemia. Source: Patient Exam Limitations: No limitations Timing/Duration: Other Severity: Other (none) Associated Symptoms: Other History of Present Illness This is 69 years old white female with past medical history of hypertension, hyperlipidemia, GERD, was in her usual state of health when she was called by her primary care physician as her potassium level was found only 2.7 and she was advised to go to emergency room. She is being admitted with the diagnosis of hypokalemia. Patient denies any symptoms including chest pain, shortness of breath, palpitation, etc. patient is being admitted for observation and for correction of potassium Home Medications Scheduled Aspirin (Aspir 81) 81 Mg Tablet.dr, 81 MG PO QPM, (Reported) Atenolol (Atenolol) 50 Mg Tablet, 100 MG PO QPM, (Reported) Atorvastatin Calcium (Atorvastatin Calcium) 40 Mg Tablet, 40 MG PO QPM, (Reported) Hydrochlorothiazide (Hydrochlorothiazide) 25 Mg Tab, 25 MG PO QPM, (Reported) Losartan Potassium (Losartan Potassium) 25 Mg Tablet, 25 MG PO DAILY, (Reported) NEW MEDICATION, REPLACES LISINOPRIL Melatonin (Melatonin) 10 Mg Capsule, 10 MG PO QHS, (Reported) Omeprazole (Omeprazole) 40 Mg Capsule.dr, 40 MG PO DAILY, (Reported) Turmeric/Turmeric Root Extract (Turmeric 500 mg Capsule) 1 Each Capsule, 1,000 MG PO DAILY, (Reported) Scheduled PRN Ibuprofen/Diphenhydramine Cit (Advil Pm Caplet) 1 Each Tablet, 1 EACH PO QHS PRN for SLEEP, (Reported) Potassium Gluconate (Potassium) 99 Mg Tablet, 595 MG PO for LEG CRAMPS, (Reported) Allergies Coded Allergies: lisinopril (Verified Adverse Reaction, Unknown, COUGH, 11/10/19) Past Medical History Medical History Hypertension, hyperlipidemia, GERD Surgical History For total left knee replacement Family History Significant Family History: No pertinent family hx Social History * Smoker: Denies Alcohol: Denies Drugs: denies A-FIB/CHADSVASC A-FIB History Current/History of A-Fib/PAF?: No Review of Systems Constitutional: Denies: Chills, Fever, Malaise, Night Sweats, Weakness, Fatigue, Weight Loss, Lethargy, Other Eyes: Denies: Pain, Vision change, Conjunctivae inflammation, Eyelid inflammation, Redness, Other ENT: Denies: Head Aches, Ear Pain, Dysphagia, Sinus Congestion, Post Nasal Drip, Sore Throat, Epistaxis, Other Symptoms Skin: Denies: Rash, Lesions, Jaundice, Bruising, Itching, Dry, Breakdown, Nail Changes, Other Pulmonary: Denies: Dyspnea, Cough, Pleuritic Chest Pain, Other Symptoms Cardiovascular: Denies: Chest Pain, Palpitations, Orthopnea, Paroxysmal Noc. Dyspnea, Edema, Lt Headedness, Other Symptoms Gastrointestinal: Denies: Nausea, Vomiting, Abdominal Pain, Diarrhea, Constipation, Melena, Hematochezia, Other Symptoms Genitourinary: Denies: Dysuria, Frequency, Incontinence, Hematuria, Retention, Other Symptoms Hematologic: Denies: Bruising, Bleeding Excessively, Petecchia, Purpura, Enlarged Lymph Nodes, Other Hematologic Endocrine: Denies: Polydipsia, Polyphagia, Polyuria, Heat Intolerance, Cold Intolerance, Other Endocrine Sx Musculoskeletal: Denies: Neck Pain, Back Pain, Shoulder Pain, Arm Pain, Hand Pain, Leg Pain, Foot Pain, Joint Pain, Muscle Pain, Spasms, Other Symptoms Neurological: Denies: Weakness, Numbness, Incoordination, Change in speech, Confusion, Seizures, Other Symptoms Psych: Denies: Mood Normal, Anxiety, Depression, Memory Issues, Thoughts of Self Harm, Anger, Thoughts of Harming Other, Other Psych Physical Examination General Exam: Positive: Alert, Cooperative Eye Exam: Positive: PERRLA, Conjunctiva & lids normal ENT Exam: Positive: Atraumatic, Mucous membr. moist/pink Neck Exam: Positive: Supple Chest Exam: Positive: Clear to auscultation, Normal air movement Heart Exam: Positive: Normal S1, Normal S2 Abdomen Exam: Positive: Normal bowel sounds, Soft Extremity Exam: Positive: Normal pulses Skin Exam: Positive: Nl turgor and temperature Neuro Exam: Positive: Strength at 5/5 X4 ext, Cranial Nerves 3-12 NL Psych Exam: Positive: Mental status NL, Mood NL, Oriented x 3 Vital Signs Vital Signs Date Time Temp Pulse Resp B/P (MAP) Pulse Ox O2 Delivery O2 Flow Rate FiO2 11/10/19 14:43 11/10/19 14:04 97.9 83 22 96 Room Air Laboratory Data Labs 24H Laboratory Tests 2 11/10/19 14:40: Immature Granulocyte % (Auto) 0.4, Neutrophils (%) (Auto) 60.9, Lymphocytes (%) (Auto) 28.2, Monocytes (%) (Auto) 7.9H, Eosinophils (%) (Auto) 2.4, Basophils (%) (Auto) 0.2, Neutrophils # (Auto) 4.9, Lymphocytes # (Auto) 2.3, Monocytes # (Auto) 0.6, Eosinophils # (Auto) 0.2, Basophils # (Auto) 0.0, Nucleated Red Blood Cells % (auto) 0.0, Anion Gap 7L, Glomerular Filtration Rate > 60.0, Calcium Level 9.1, Phosphorus Level 1.6L, Magnesium Level 1.7L CBC/BMP Laboratory Tests 11/10/19 14:40 Problems (1) Hypokalemia Status: Acute Problem Text: Most likely secondary to the intake of her diuretics Patient does not take her potassium supplement as she has been recommended by her physician KCl 10 mEq IV 1 and KCl 40 mg by mouth 1 has been ordered in ED Repeat K level at midnight tonight and supplemented as needed Also repeat K level in a.m. and correct levels as needed Diet 2 g sodium Activity as tolerated DVT prophylaxis with Lovenox Disposition: Possible discharge in a.m. if her levels have been corrected and blood pressure is within normal range (2) Hypomagnesemia Status: Acute Problem Text: Magnesium sulfate 1 g IV piggyback has been ordered Egg levels in a.m. (3) HTN (hypertension) Status: Chronic Problem Text: Not under well control. Patient is on hydrochlorothiazide, losartan and atenolol Patient does not take her potassium supplement as she was advised by her physician Will add hydralazine 10 mg by mouth every 6 hours when necessary for systolic more than 150 . I will hold her hydrochlorothiazide secondary to hypokalemia Her other meds including atenolol and losartan the dosage can be increased if the blood pressure remains higher during her stay (4) HLD (hyperlipidemia) Status: Chronic Problem Text: Continue home meds Plan / VTE VTE Prophylaxis Ordered?: Yes ADELINE CUADRA MD Nov 10, 2019 16:44
[2019-11-10] MEDS ORDERED: MAG SULF 1GM/100ML (MAG RUN) 1 GM in IV 1 EA IV ONE (16:45)
[2019-11-10] MEDS ORDERED: KCL 10MEQ IN STERILE WATER 100ML As Ordered ONE (17:13)
[2019-11-10 17:25] VITALS: BP 166/82
[2019-11-10] MEDS: atenoloL 50 MG TAB PO SCH (17:52)
[2019-11-10] MEDS: ATORVASTATIN 20 MG TAB PO SCH (17:52)
[2019-11-10] MEDS: **hydrALAZINE** 10 MG TAB PO SCH ×2 (17:53→23:43)
[2019-11-10] MEDS: ASPIRIN 81 MG ENTERIC TAB PO SCH (17:53)
[2019-11-10] MEDS: DOCUSATE SODIUM 100 MG CAP PO SCH (20:20)
[2019-11-10] MEDS: ENOXAPARIN 40 MG/0.4 ML SYRINGE (J1650) SC SCH (20:20)
--- NOTE | 2019-11-10 20:41 | ECGEPIP ---
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
[2019-11-10 22:00] VITALS: BP 115/63
[2019-11-11] MEDS: **hydrALAZINE** 10 MG TAB PO SCH ×4 (05:47→23:23)
[2019-11-11 06:00] VITALS: BP 138/74
[2019-11-11 07:04] LABS: HEMATOCRIT 36.2 % (36.0-47.0); HEMOGLOBIN 12.2 g/dl (12.0-15.5); MEAN CORPUSCULAR HEMOGLOBIN 29.3 pg (27.0-33.0); MEAN CORPUSCULAR HGB CONC 33.7 g/dl (32.0-36.5); MEAN CORPUSCULAR VOLUME 86.8 fl (80.0-96.0); PLATELET COUNT, AUTOMATED 223 10^3/uL (150-450); RED BLOOD COUNT 4.17 10^6/uL (4.00-5.40); WHITE BLOOD COUNT 5.9 10^3/uL (4.0-10.0)
[2019-11-11 07:25] LABS: ALBUMIN 3.1 GM/DL (3.2-5.2); ALT/SGPT 35 U/L (12-78); BILIRUBIN,TOTAL 0.5 MG/DL (0.2-1.0); BLOOD UREA NITROGEN 8 MG/DL (7-18); CALCIUM LEVEL 8.6 MG/DL (8.8-10.2); CARBON DIOXIDE LEVEL 27 MEQ/L (21-32); CHLORIDE LEVEL 107 MEQ/L (98-107); CREATININE FOR GFR 0.67 MG/DL (0.55-1.30); GLOMERULAR FILTRATION RATE > 60.0 (>45); GLUCOSE, FASTING 111 MG/DL (70-100); MAGNESIUM LEVEL 2.1 MG/DL (1.8-2.4); SODIUM LEVEL 140 MEQ/L (136-145); TOTAL PROTEIN 6.4 GM/DL (6.4-8.2)
[2019-11-11] MEDS: LOSARTAN 25 MG TAB PO SCH (07:47)
[2019-11-11] MEDS: DOCUSATE SODIUM 100 MG CAP PO SCH ×2 (07:47→17:45)
[2019-11-11] MEDS: OMEPRAZOLE 20 MG CAP PO SCH (07:47)
[2019-11-11] MEDS ORDERED: POTASSIUM CHLORIDE 10 MEQ SR TABLET PO ONE ×3 (11:00→21:00)
[2019-11-11 14:00] VITALS: BP 120/76
[2019-11-11] MEDS: ATORVASTATIN 20 MG TAB PO SCH (17:44)
[2019-11-11] MEDS: atenoloL 50 MG TAB PO SCH (17:45)
[2019-11-11] MEDS: ASPIRIN 81 MG ENTERIC TAB PO SCH (17:45)
--- NOTE | 2019-11-11 17:53 | IPNPDOC ---
Text Note Date of Service The patient was seen on 11/11/19. NOTE Subjective: No complaints this morning. Potassium still low will continue with supplmentation. PHYSICAL EXAMINATION VITAL SIGNS: Please see below. General Exam: Positive: Alert, Cooperative Eye Exam: Positive: PERRLA, Conjunctiva & lids normal ENT Exam: Positive: Atraumatic, Mucous membr. moist/pink Neck Exam: Positive: Supple Chest Exam: Positive: Clear to auscultation, Normal air movement Heart Exam: Positive: Normal S1, Normal S2 Abdomen Exam: Positive: Normal bowel sounds, Soft Extremity Exam: Positive: Normal pulses Skin Exam: Positive: Nl turgor and temperature Neuro Exam: Positive: Strength at 5/5 X4 ext, Cranial Nerves 3-12 NL Psych Exam: Positive: Mental status NL, Mood NL, Oriented x 3 Labs and radiology : reviewed Assessment and plan: This is 69 years old white female with past medical history of hypertension, hyperlipidemia, GERD, was in her usual state of health when she was called by her primary care physician as her potassium level was found only 2.7 and she was advised to go to emergency room. She is being admitted with the diagnosis of hypokalemia. Patient denies any symptoms including chest pain, shortness of breath, palpitation, etc. patient is being admitted for observation and for correction of potassium Hypokalemia probably due to dietary change on the back ground of chronic HCTZ use. patient over the past 6 months has changed her diet to loose some weight. She has lost about 15 lbs. Hypomagnesemia replaced HTN (hypertension) atenolol and losartan will hold HCTZ due to hypokalemia HLD (hyperlipidemia) statin DVT prophylaxis in place VS,Fishbone, I+O VS, Fishbone, I+O Laboratory Tests 11/10/19 22:51 11/11/19 06:37 11/11/19 06:40 Vital Signs Date Time Temp Pulse Resp B/P (MAP) Pulse Ox O2 Delivery O2 Flow Rate FiO2 11/11/19 17:45 82 127/71 11/11/19 14:00 98.6 21 96 Room Air I&O- Last 24 Hours up to 6 AM 11/11/19 06:00 Intake Total 390 ml Output Total 250 ml Balance 140 ml JAMES ALBERTO MD Nov 11, 2019 17:53
[2019-11-11 18:04] LABS: BLOOD UREA NITROGEN 8 MG/DL (7-18); CALCIUM LEVEL 8.8 MG/DL (8.8-10.2); CARBON DIOXIDE LEVEL 29 MEQ/L (21-32); CHLORIDE LEVEL 104 MEQ/L (98-107); CREATININE FOR GFR 0.76 MG/DL (0.55-1.30); GLOMERULAR FILTRATION RATE > 60.0 (>45); GLUCOSE, FASTING 101 MG/DL (70-100); POTASSIUM SERUM 3.5 MEQ/L (3.5-5.1); SODIUM LEVEL 140 MEQ/L (136-145)
[2019-11-11] MEDS ORDERED: diphenhydrAMINE 25 MG CAP PO ONE (21:00)
[2019-11-11] MEDS: ENOXAPARIN 40 MG/0.4 ML SYRINGE (J1650) SC SCH (21:15)
[2019-11-11 22:00] VITALS: BP 134/77
[2019-11-12] MEDS: **hydrALAZINE** 10 MG TAB PO SCH (05:07)
[2019-11-12 06:00] VITALS: BP 152/84
[2019-11-12 06:01] LABS: BASO % 0.3 % (0.0-1.0); EOS # 0.3 10^3/uL (0.0-0.5); EOS % 3.7 % (0.0-3.0); HEMATOCRIT 36.9 % (36.0-47.0); HEMOGLOBIN 12.4 g/dl (12.0-15.5); LYMPH # 2.2 10^3/uL (1.5-5.0); LYMPH % 30.8 % (24.0-44.0); MEAN CORPUSCULAR HGB CONC 33.6 g/dl (32.0-36.5); MEAN CORPUSCULAR VOLUME 89.3 fl (80.0-96.0); MONO # 0.7 10^3/uL (0.0-0.8); MONO % 9.3 % (0.0-5.0); NEUTROPHILS # 3.9 10^3/uL (1.5-8.5); NEUTROPHILS % 55.8 % (36.0-66.0); PLATELET COUNT, AUTOMATED 216 10^3/uL (150-450); RED BLOOD COUNT 4.13 10^6/uL (4.00-5.40)
[2019-11-12 06:30] LABS: BLOOD UREA NITROGEN 9 MG/DL (7-18); CALCIUM LEVEL 8.8 MG/DL (8.8-10.2); CARBON DIOXIDE LEVEL 29 MEQ/L (21-32); CHLORIDE LEVEL 110 MEQ/L (98-107); CREATININE FOR GFR 0.76 MG/DL (0.55-1.30); GLOMERULAR FILTRATION RATE > 60.0 (>45); GLUCOSE, FASTING 104 MG/DL (70-100); POTASSIUM SERUM 4.1 MEQ/L (3.5-5.1); SODIUM LEVEL 142 MEQ/L (136-145)
[2019-11-12] MEDS ORDERED: HYDR12.55 PO (07:37)
[2019-11-12] MEDS ORDERED: POTA10TA14 PO (07:37)
--- NOTE | 2019-11-12 07:41 | DS.PDOC ---
Discharge Summary General Date of Admission Nov 10, 2019 at 14:05 Date of Discharge 11/12/19 Discharge Summary PROCEDURES PERFORMED DURING STAY: [None]. DISCHARGE DIAGNOSES: Hypokalemia due to diuretic and dietary change Hypertension Hyperlipidemia GERD COMPLICATIONS/CHIEF COMPLAINT: Hypokalemia. HISTORY OF PRESENT ILLNESS: See history and physical HOSPITAL COURSE: This is 69 years old white female with past medical history of hypertension, hyperlipidemia, GERD, was in her usual state of health when she was called by her primary care physician as her potassium level was found only 2.7 and she was advised to go to emergency room. She is being admitted with the diagnosis of hypokalemia. Patient denies any symptoms including chest pain, shortness of breath, palpitation, etc. patient is being admitted for observation and for correction of potassium Hypokalemia probably due to dietary change on the back ground of chronic HCTZ use. patient over the past 6 months has changed her diet to loose some weight. She has lost about 15 lbs. Hypomagnesemia replaced HTN (hypertension) atenolol and losartan will decrease dose of HCTZ to 12.5 and start on potassium daily HLD (hyperlipidemia) statin DISCHARGE MEDICATIONS: Please see below. ALLERGIES: Please see below. PHYSICAL EXAMINATION ON DISCHARGE: VITAL SIGNS: Please see below. General Exam: Positive: Alert, Cooperative Eye Exam: Positive: PERRLA, Conjunctiva & lids normal ENT Exam: Positive: Atraumatic, Mucous membr. moist/pink Neck Exam: Positive: Supple, no JVD Chest Exam: Positive: Clear to auscultation, Normal air movement Heart Exam: Positive: Normal S1, Normal S2, No rub, murmur or gallop Abdomen Exam: Positive: Normal bowel sounds, Soft, nontender Extremity Exam: Positive: Normal pulses, No edema Skin Exam: Positive: Nl turgor and temperature Neuro Exam: Positive: Strength at 5/5 X4 ext, Cranial Nerves 3-12 NL Psych Exam: Positive: Mental status NL, Mood NL, Oriented x 3 LABORATORY DATA: Please see below. ACTIVITY: [As tolerated]. DIET: As tolerated DISCHARGE PLAN: Home DISCHARGE INSTRUCTIONS: PMD in 1 week Basic metabolic profile on 11/14/19 DISCHARGE CONDITION: [Stable]. TIME SPENT ON DISCHARGE: 35 minutes. Vital Signs/I&Os Vital Signs Date Time Temp Pulse Resp B/P (MAP) Pulse Ox O2 Delivery O2 Flow Rate FiO2 11/12/19 06:00 97.6 80 16 152/84 (106) 97 Room Air I&O- Last 24 Hours up to 6 AM 11/12/19 06:00 Intake Total 540 ml Output Total 475 ml Balance 65 ml Laboratory Data Labs 24H Laboratory Tests 2 11/11/19 17:05: Anion Gap 7L, Glomerular Filtration Rate > 60.0, Calcium Level 8.8 11/12/19 05:39: Anion Gap 3L, Glomerular Filtration Rate > 60.0, Calcium Level 8.8, Immature Granulocyte % (Auto) 0.1, Neutrophils (%) (Auto) 55.8, Lymphocytes (%) (Auto) 30.8, Monocytes (%) (Auto) 9.3H, Eosinophils (%) (Auto) 3.7H, Basophils (%) (Auto) 0.3, Neutrophils # (Auto) 3.9, Lymphocytes # (Auto) 2.2, Monocytes # (Auto) 0.7, Eosinophils # (Auto) 0.3, Basophils # (Auto) 0.0, Nucleated Red Blood Cells % (auto) 0.0 CBC/BMP Laboratory Tests 11/11/19 17:05 11/12/19 05:39 Discharge Medications Scheduled Aspirin (Aspir 81) 81 Mg Tablet.dr, 81 MG PO QPM, (Reported) Atenolol (Atenolol) 50 Mg Tablet, 100 MG PO QPM, (Reported) Atorvastatin Calcium (Atorvastatin Calcium) 40 Mg Tablet, 40 MG PO QPM, ( Reported) Hydrochlorothiazide (Hydrochlorothiazide) 12.5 Mg Tablet, 1 TAB PO DAILY Losartan Potassium (Losartan Potassium) 25 Mg Tablet, 25 MG PO DAILY, (Reported) NEW MEDICATION, REPLACES LISINOPRIL Melatonin (Melatonin) 10 Mg Capsule, 10 MG PO QHS, (Reported) Omeprazole (Omeprazole) 40 Mg Capsule.dr, 40 MG PO DAILY, (Reported) Potassium Chloride (Potassium Chloride) 10 Meq Tablet.er, 2 TAB PO DAILY Turmeric/Turmeric Root Extract (Turmeric 500 mg Capsule) 1 Each Capsule, 1,000 MG PO DAILY, (Reported) Scheduled PRN Ibuprofen/Diphenhydramine Cit (Advil Pm Caplet) 1 Each Tablet, 1 EACH PO QHS PRN for SLEEP, (Reported) Potassium Gluconate (Potassium) 99 Mg Tablet, 595 MG PO for LEG CRAMPS, (Reported) Allergies Coded Allergies: lisinopril (Verified Adverse Reaction, Unknown, COUGH, 11/10/19) JAMES ALBERTO MD Nov 12, 2019 07:41
[2019-11-12] MEDS: DOCUSATE SODIUM 100 MG CAP PO SCH (08:18)
[2019-11-12 08:20] VITALS: BP 152/84
[2019-11-12] MEDS: LOSARTAN 25 MG TAB PO SCH (08:20)
[2019-11-12] MEDS: OMEPRAZOLE 20 MG CAP PO SCH (08:21)
== END 2019-11-12 11:13 | disposition home or self-care (01) ==
LOC: M ED 14:04 → M ED INP 14:05 → ENRESERV 16:15 → M MSPAV 17:24
PROVIDERS: ADMIT Internal Medicine; ATTEND Internal Medicine Nephrology
DX: E87.6 Hypokalemia (principal); I10 Essential (primary) hypertension; E78.5 Hyperlipidemia, unspecified; K21.9 Gastro-esophageal reflux disease without esophagitis; E83.42 Hypomagnesemia; Z79.899 Other long term (current) drug therapy; Z79.82 Long term (current) use of aspirin; Z88.8 Allergy status to other drugs, medicaments and biological substances
CPT/HCPCS: 36415; 80048; 80053; 83036; 83735; 84100; 85025; 85027; 93005; 93041; 94760; 96372; 99285; G0378; G0463; J1650; J3475

== ENCOUNTER → 2019-11-10 | Outpatient (REF) | payer MEDICARE, MEDICAID ==
[~2019-11-10] MED LIST changes: +ADVI200T17 PO; -ASPI-225; +ASPI81TA78; +ASPI81TA85 PO; +ATEN50TA2 PO; +ATOR40TA75 PO; +HM P99TA PO; +LOSA25TA14 PO; +MELA10CA2 PO; +OMEP-221 PO; +TURM500C PO
[2019-11-10 13:07] LABS: BLOOD UREA NITROGEN 10 MG/DL (7-18); CALCIUM LEVEL 8.9 MG/DL (8.8-10.2); CARBON DIOXIDE LEVEL 33 MEQ/L (21-32); CHLORIDE LEVEL 101 MEQ/L (98-107); CREATININE FOR GFR 0.77 MG/DL (0.55-1.30); GLOMERULAR FILTRATION RATE > 60.0 (>45); GLUCOSE, FASTING 107 MG/DL (70-100); POTASSIUM SERUM 2.7 MEQ/L (3.5-5.1); SODIUM LEVEL 140 MEQ/L (136-145)
[2019-11-10 14:41] LABS: HEMOGLOBIN A1c 6.3 %
== END ==
LOC: M SFHCPLAZ 09:15
PROVIDERS: ATTEND Family Medicine
DX: I10 Essential (primary) hypertension (principal); Z13.1 Encounter for screening for diabetes mellitus; Z79.899 Other long term (current) drug therapy

== ENCOUNTER → 2019-11-18 | Outpatient (CLI) | payer MEDICARE ==
[~2019-11-18] MED LIST changes: +ADVI200T17 PO; +ASPI81TA85 PO; +ATEN50TA2 PO; +ATOR40TA75 PO; +HM P99TA PO; +HYDR12.55 PO; +LOSA25TA14 PO; +MELA10CA2 PO; +OMEP-221 PO; +POTA10TA14 PO; +TURM500C PO
[2019-11-18 11:58] LABS: BLOOD UREA NITROGEN 14 MG/DL (7-18); CARBON DIOXIDE LEVEL 26 MEQ/L (21-32); CHLORIDE LEVEL 107 MEQ/L (98-107); CREATININE FOR GFR 0.76 MG/DL (0.55-1.30); GLOMERULAR FILTRATION RATE > 60.0 (>45); GLUCOSE, FASTING 122 MG/DL (70-100); POTASSIUM SERUM 3.8 MEQ/L (3.5-5.1); SODIUM LEVEL 139 MEQ/L (136-145)
== END ==
LOC: M PLALAB 09:37
PROVIDERS: ATTEND Internal Medicine Nephrology
DX: I10 Essential (primary) hypertension (principal); E78.2 Mixed hyperlipidemia

== ENCOUNTER → 2019-11-18 | Outpatient (REF) | payer MEDICARE, MEDICAID | LOC: M SFHCPLAZ 09:36 | PROVIDERS: ATTEND Family Medicine | DX: I10 Essential (primary) hypertension (principal) ==

== ENCOUNTER → 2020-02-03 | Outpatient (REF) | payer MEDICARE, MEDICAID ==
[~2020-02-03] MED LIST changes: +ACET25TA12 PO; +CEFD300CAP PO; +DOXY100T PO; +LOSA50TA88 PO; +PEPC40TA12 PO
[2020-02-03 12:00] LABS: CHOLESTEROL RISK RATIO 3.546 (<5)
== END ==
LOC: M PLALAB 08:54
PROVIDERS: ATTEND Family Medicine
DX: E78.2 Mixed hyperlipidemia (principal)

== ENCOUNTER 2020-02-05 14:25 | Inpatient (IN) | payer MEDICARE, MEDICAID ==
[~2020-02-05] VITALS: Ht 162.6 cm; Wt 78.0 kg
[~2020-02-05 14:25] MED LIST changes: -ACET25TA12 PO
[2020-02-05 15:24] LABS: BASO # 0.1 10^3/uL (0.0-0.2); BASO % 0.6 % (0.0-1.0); EOS # 0.2 10^3/uL (0.0-0.5); EOS % 1.9 % (0.0-3.0); HEMOGLOBIN 13.3 g/dl (12.0-15.5); LYMPH # 1.7 10^3/uL (1.5-5.0); LYMPH % 20.7 % (24.0-44.0); MEAN CORPUSCULAR HEMOGLOBIN 29.8 pg (27.0-33.0); MONO # 0.7 10^3/uL (0.0-0.8); MONO % 8.4 % (0.0-5.0); NEUTROPHILS # 5.5 10^3/uL (1.5-8.5); NEUTROPHILS % 68.2 % (36.0-66.0); PLATELET COUNT, AUTOMATED 250 10^3/uL (150-450); RED BLOOD COUNT 4.47 10^6/uL (4.00-5.40); WHITE BLOOD COUNT 8.1 10^3/uL (4.0-10.0)
[2020-02-05 15:36] LABS: INR 1.11; PARTIAL THROMBOPLASTIN TIME 29.3 SECONDS (25.0-38.4)
[2020-02-05 15:39] LABS: D-DIMER QUANT 759.79 ng/ml (<500)
[2020-02-05 15:49] LABS: ALBUMIN 3.4 GM/DL (3.2-5.2); ALT/SGPT 33 U/L (12-78); BILIRUBIN,DIRECT 0.1 MG/DL (0.0-0.2); BILIRUBIN,TOTAL 0.3 MG/DL (0.2-1.0); BLOOD UREA NITROGEN 10 MG/DL (7-18); CALCIUM LEVEL 8.5 MG/DL (8.8-10.2); CARBON DIOXIDE LEVEL 29 MEQ/L (21-32); CHLORIDE LEVEL 100 MEQ/L (98-107); CK-MB VALUE MASS 1.4 NG/ML (<3.6); CPK CREATINE PHOSPHOKINASE 65 U/L (26-192); CREATININE FOR GFR 0.75 MG/DL (0.55-1.30); FREE T4 1.17 NG/DL (0.76-1.46); GLOMERULAR FILTRATION RATE > 60.0 (>45); GLUCOSE, FASTING 136 MG/DL (70-100); LIPASE 131 U/L (73-393); MB/CK RELATIVE INDEX 2.15 (< OR =4); NT-PRO BNP 150 PG/ML (<125); POTASSIUM SERUM 2.7 MEQ/L (3.5-5.1); SODIUM LEVEL 138 MEQ/L (136-145); TOTAL PROTEIN 6.8 GM/DL (6.4-8.2); TROPONIN I < 0.02 NG/ML (< 0.10)
[2020-02-05] MEDS ORDERED: POTASSIUM CHLORIDE 10 MEQ SR TABLET PO ONE ×3 (16:00→23:00)
[2020-02-05] MEDS ORDERED: KCL 10MEQ/100ML SWI (KRUN) 10 MEQ in IV 1 EA IV ONE (16:00)
[2020-02-05] MEDS ORDERED: cefTRIAXone SOD 1 GM in D5W MINI-BAG PLUS 50 ML IV ONE (16:15)
[2020-02-05] MEDS ORDERED: DOXYCYCLINE HYCLATE 100 MG in D5W MINI-BAG PLUS 100 ML IV ONE (16:15)
[2020-02-05] MEDS ORDERED: ISOVUE-370 76% 100ML VIAL As Ordered ONE (16:18)
[2020-02-05] MEDS ORDERED: ALBUTEROL 90 MCG/ACT 8GM HFA INHALER INH PRN (16:30)
[2020-02-05] MEDS ORDERED: ACET25TA12 PO (16:36)
[2020-02-05] MEDS ORDERED: POTA10TA14 PO (16:36)
[2020-02-05] MEDS ORDERED: HYDR12.55 PO (16:37)
--- NOTE | 2020-02-05 16:44 | HPEPDOC ---
General Date of Admission Date of Service: Feb 05, 2020 Chief Complaint The patient is a 69-year-old female admitted with a reason for visit of Fever,Cough,Sob. Source: Patient Exam Limitations: No limitations Timing/Duration: Day(s) (2) Associated Symptoms: Cough, Fever History of Present Illness Pt is a 69 yo female who has PMH of HTN and hypokalemia presented to [facility] by ambulance after being sent by PCP for subjective fever, nonproductive cough, dyspnea it was noted that her CXR showed b/l lower lung infiltrates/edema. She was tested for COVID outpt with pending results. She reported that the most re cent hospitalization was in November, and denies any sick contact. Exposure to animal including lizard and a fish, denies contact to farm animals or birds. Reported fever of 99F the night prior to admission. Denies any rhinorrhea, facial pain, sore throat, joint pain, or muscle pain. Pt also noted that she also noticed some chest pain while in the hospital with trop<0.02 in ER. Pt denied any other symptom except mentioned above Home Medications Scheduled Acetaminophen/Diphenhydramine (Acetaminophen Pm Caplet) 1 Each Tablet, 2 TAB PO QHS, (Reported) Aspirin (Aspir 81) 81 Mg Tablet.dr, 81 MG PO QPM, (Reported) Atenolol (Atenolol) 50 Mg Tablet, 100 MG PO QPM, (Reported) Atorvastatin Calcium (Atorvastatin Calcium) 40 Mg Tablet, 40 MG PO QPM, (Rep orted) Cefdinir (Cefdinir) 300 Mg Capsule, 300 MG PO BID Doxycycline Hyclate (Doxycycline Hyclate) 100 Mg Tablet, 100 MG PO BID Famotidine (Pepcid) 40 Mg Tablet, 40 MG PO DAILY Losartan Potassium (Losartan Potassium) 50 Mg Tablet, 50 MG PO DAILY Potassium Chloride (Potassium Chloride) 10 Meq Tablet.er, 20 MEQ PO DAILY, (Reported) Turmeric/Turmeric Root Extract (Turmeric 500 mg Capsule) 1 Each Capsule, 1,000 MG PO DAILY, (Reported) Allergies Coded Allergies: lisinopril (Verified Adverse Reaction, Unknown, COUGH, 11/10/19) Past Medical History Medical History HTN Hyperlipidemia Heart murmur Left hip arthritis Social History * Smoker: Denies Denies sick contact. One fish as pet A-FIB/CHADSVASC A-FIB History Current/History of A-Fib/PAF?: No Review of Systems Constitutional: Reports: Fever ENT: Denies: Sore Throat Pulmonary: Reports: Dyspnea, Cough Cardiovascular: Reports: Chest Pain; Denies: Palpitations, Edema Gastrointestinal: Denies: Nausea, Vomiting, Abdominal Pain, Diarrhea, Constipation, Hematochezia Musculoskeletal: Denies: Joint Pain, Muscle Pain Neurological: Denies: Change in speech Physical Examination General Exam: Positive: Alert, Mild Distress Eye Exam: Positive: Conjunctiva & lids normal; Negative: Sclera icteric ENT Exam: Positive: Atraumatic, Mucous membr. moist/pink Neck Exam: Positive: Supple Chest Exam: Positive: Normal air movement, Diminished (mild b/l), Other (mild b/l crakcles with aus) Heart Exam: Positive: Tachycardic, Regular Rhythm, Normal S1, Normal S2 Abdomen Exam: Positive: Normal bowel sounds, Soft; Negative: Tenderness Extremity Exam: Negative: Cyanosis, Edema, Swelling Skin Exam: Positive: Nl turgor and temperature Neuro Exam: Positive: Normal Speech, Normal Tone Psych Exam: Positive: Mental status NL, Mood NL, Memory Intact, Oriented x 3 Vital Signs Vital Signs Date Time Temp Pulse Resp B/P (MAP) Pulse Ox O2 Delivery O2 Flow Rate FiO2 02/05/20 15:14 Room Air 02/05/20 15:11 99.2 98 20 189/95 93 Laboratory Data Labs 24H Laboratory Tests 2 02/05/20 15:06: Immature Granulocyte % (Auto) 0.2, Neutrophils (%) (Auto) 68.2H, Lymphocytes (%) (Auto) 20.7L, Monocytes (%) (Auto) 8.4H, Eosinophils (%) (Auto) 1.9, Basophils (%) (Auto) 0.6, Neutrophils # (Auto) 5.5, Lymphocytes # (Auto) 1.7, Monocytes # (Auto) 0.7, Eosinophils # (Auto) 0.2, Basophils # (Auto) 0.1, Nucleated Red Blood Cells % (auto) 0.0, Prothrombin Time 14.0, Prothromb Time International Ratio 1.11, Activated Partial Thromboplast Time 29.3, D-Dimer, Quantitative 759.79H, Anion Gap 9, Glomerular Filtration Rate > 60.0, Calcium Level 8.5L, Total Bilirubin 0.3, Direct Bilirubin 0.1, Aspartate Amino Transf (AST/SGOT) 23, Alanine Aminotransferase (ALT/SGPT) 33, Alkaline Phosphatase 101, Total Creatine Kinase 65, Creatine Kinase MB 1.4, Creatine Kinase MB Relative Index 2.15, Troponin I < 0.02, PZ-Zcd-G-Type Natriuretic Peptide 150H, Total Protein 6.8, Albumin 3.4, Albumin/Globulin Ratio 1.0L, Lipase 131, Free Thyroxine 1.17 CBC/BMP Laboratory Tests 02/05/20 15:06 Microbiology Microbiology 02/05/20 Blood Culture, Received Pending 02/05/20 Blood Culture, Received Pending Assessment/Plan 1. B/l lung lower lobe infiltrate/edema, likely 2/2 pulmonary edema from HTN emergency vs Community acquired PNA. Blood pressure control. Subjective fever with non-productive cough and dyspnea. S/p ceftriaxone and doxy in ER. Cont ceftriaxone and doxy. Sat 92% on 2L. Cont pulse o and oxygen therapy. HFA inhalers PRN. Resp panel ordered and procalcitonin ordered . Rapid covid 19 done in ER pending. There's also a COVID19 test done outpt pending. Isolation precaution 2. Hypokalemia. PMH of hypokalemia. S/p 1 k run and 40meq PO, will do 2 more 40 meq K supplementation today; repeat BMP in the evening. Mg level ordered. Cont home med losartan. Hold home med HCTZ and omeprazole. 3. HTN emergency vs urgency. Chest pain likely 2/2 PNA vs pulmonary edema with trop negX1. Vitals standard of care. B/l lower lobe infiltrate/edema on CXR. Shania vated blood pressure peaked with SBP>200. No obvious neurological symptoms noted. Vitals standard of care. 10mg Amlodipine ordered, start home med losartan and atenolol early; consider labetalol if resistant malignant HTN. 48 hr tele with EKG chest pain PRN, neg tropX1, repeat trop. Combined with h ypokalemia, r/o hyperaldosteronism. 4. Hyperlipidemia. Cont home med statin and Aspirin DVT prophylaxis: lovenox, SCD GI prophylaxis: not indicated Attending attestation: I evaluated and examined the patient in person; I discussed the care with Resident in detail and agree with the plan above. Plan / VTE VTE Prophylaxis Ordered?: Yes JOZEF OBRIEN DO Feb 05, 2020 16:44 ANTONINO MANRIQUE MD Feb 09, 2020 08:23
[2020-02-05] MEDS ORDERED: amLODIPine 10 MG TAB PO ONE (17:00)
--- NOTE | 2020-02-05 17:15 | REP ---
Bilateral lower extremity Duplex Doppler venous ultrasound: Real time compression and duplex Doppler interrogation of the bilateral lower extremity deep venous system is performed. Bilaterally, the common femoral, superficial femoral and popliteal veins are fully compressible with transducer pressure and demonstrate normal spontaneous and phasic flow, without evidence of deep venous thrombosis. Impression: No evidence of deep venous thrombosis of the bilateral lower extremity femoral popliteal venous system. Electronically Signed by John Zamarripa MD 02/05/2020 05:06 P
[2020-02-05 17:22] LABS: MAGNESIUM LEVEL 1.7 MG/DL (1.8-2.4)
--- NOTE | 2020-02-05 18:32 | REPVR ---
PROCEDURE INFORMATION: Exam: CT Angiography Chest With Contrast Exam date and time: 02/05/2020 5:45 PM Age: 69 years old Clinical indication: Chest pain; Additional info: Pleuritic pain elev d-dimer R/O pe TECHNIQUE: Imaging protocol: Computed tomographic angiography of the chest with intravenous contrast. 3D rendering: MIP and/or 3D reconstructed images were created by the technologist. Radiation optimization: All CT scans at this facility use at least one of these dose optimization techniques: automated exposure control; mA and/or kV adjustment per patient size (includes targeted exams where dose is matched to clinical indication); or iterative reconstruction. Contrast material: ISOBUE 370; Contrast volume: 75 ml; Contrast route: IV; COMPARISON: CR CHEST 2 VIEWS 02/05/2020 10:27 AM FINDINGS: Pulmonary arteries: Normal. No pulmonary emboli. Aorta: Unremarkable. No aortic aneurysm. No aortic dissection. Lungs: There are patchy ground-glass opacities centered peripherally in bilateral lungs. Pleural space: Unremarkable. No pneumothorax. No pleural effusion. Heart: Unremarkable. No cardiomegaly. No pericardial effusion. Mediastinal space: Small hiatal hernia. Lymph nodes: Unremarkable. No enlarged lymph nodes. Bones/joints: Unremarkable. No acute fracture. Soft tissues: Unremarkable. IMPRESSION: No pulmonary embolism. Patchy ground-glass opacities centered peripherally in bilateral lungs. Etiology infectious/inflammatory. Electronically signed by: Alexander Fernandez On 02/05/2020 18:32:09 PM
[2020-02-05] MEDS: ENOXAPARIN 30MG/0.3ML SYRINGE (J1650 PER 10MG) SC SCH (18:37)
[2020-02-05 20:08] VITALS: BP 183/83
[2020-02-05 20:20] VITALS: O2SAT 94
[2020-02-05] MEDS: atenoloL 50 MG TAB PO SCH (20:32)
[2020-02-05] MEDS: LOSARTAN 25 MG TAB PO SCH (20:32)
[2020-02-05] MEDS: ATORVASTATIN 20 MG TAB PO SCH (20:33)
[2020-02-05] MEDS: ASPIRIN 81 MG ENTERIC TAB PO SCH (20:33)
[2020-02-05] MEDS ORDERED: LOSARTAN 25 MG TAB PO SCH (21:00)
[2020-02-05] MEDS ORDERED: MAGNESIUM OXIDE 400 MG TAB (MAG-OX) PO ONE (21:00)
[2020-02-05] MEDS ORDERED: atenoloL 50 MG TAB PO SCH (21:00)
[2020-02-05 22:17] LABS: BLOOD UREA NITROGEN 8 MG/DL (7-18); CALCIUM LEVEL 8.4 MG/DL (8.8-10.2); CARBON DIOXIDE LEVEL 27 MEQ/L (21-32); CHLORIDE LEVEL 102 MEQ/L (98-107); CREATININE FOR GFR 0.77 MG/DL (0.55-1.30); GLOMERULAR FILTRATION RATE > 60.0 (>45); GLUCOSE, FASTING 176 MG/DL (70-100); POTASSIUM SERUM 3.1 MEQ/L (3.5-5.1); SODIUM LEVEL 138 MEQ/L (136-145); TROPONIN I < 0.02 NG/ML (< 0.10)
[2020-02-05] MEDS: ACETAMINOPHEN TAB 650MG DOSE (2X325MG) PO PRN (22:33)
[2020-02-05] MEDS: diphenhydrAMINE 50MG CAP PO PRN (22:33)
[2020-02-05 22:41] VITALS: BP 144/65
[2020-02-06] VITALS (11 sets, daily range): BP systolic 110–138; BP diastolic 56–73; O2SAT 92–95
[2020-02-06] MEDS ORDERED: MAGNESIUM OXIDE 400 MG TAB (MAG-OX) PO ONE (05:00)
[2020-02-06 07:34] LABS: HEMOGLOBIN 12.8 g/dl (12.0-15.5); MEAN CORPUSCULAR HEMOGLOBIN 29.2 pg (27.0-33.0); MEAN CORPUSCULAR HGB CONC 33.7 g/dl (32.0-36.5); MEAN CORPUSCULAR VOLUME 86.6 fl (80.0-96.0); PLATELET COUNT, AUTOMATED 245 10^3/uL (150-450); RED BLOOD COUNT 4.39 10^6/uL (4.00-5.40); WHITE BLOOD COUNT 8.2 10^3/uL (4.0-10.0)
[2020-02-06] MEDS: POTASSIUM CHLORIDE 10 MEQ SR TABLET PO SCH (07:55)
[2020-02-06 07:59] LABS: BLOOD UREA NITROGEN 8 MG/DL (7-18); CALCIUM LEVEL 8.9 MG/DL (8.8-10.2); CARBON DIOXIDE LEVEL 29 MEQ/L (21-32); CHLORIDE LEVEL 105 MEQ/L (98-107); CREATININE FOR GFR 0.66 MG/DL (0.55-1.30); GLOMERULAR FILTRATION RATE > 60.0 (>45); GLUCOSE, FASTING 98 MG/DL (70-100); MAGNESIUM LEVEL 1.9 MG/DL (1.8-2.4); SODIUM LEVEL 140 MEQ/L (136-145)
--- NOTE | 2020-02-06 08:21 | IPNPDOC ---
Subjective Date Seen The patient was seen on 02/06/20. Subjective Chief Complaint/HPI Pt reported she is still having some chest pressure, non-productive cough, and exertional dyspnea. Reported that she does not feel chest pain. She denies any fever, chills, palpitation, leg pain/leg swelling. Continue to have no fever or chills. Pt reported 2 watery diarrhea without abd pain or blood in stool General: Denies: Chills Constitutional: Denies: Chills, Fever Pulmonary: Reports: Dyspnea, Cough Cardiovascular: Reports: Other Symptoms (chest pressure) Gastrointestinal: Reports: Diarrhea; Denies: Nausea, Vomiting, Abdominal Pain, Melena, Hematochezia Musculoskeletal: Denies: Leg Pain Neurological: Denies: Confusion Objective Physical Examination General Exam: Positive: Alert, No Acute Distress Eye Exam: Positive: Conjunctiva & lids normal; Negative: Sclera icteric ENT Exam: Positive: Atraumatic, Mucous membr. moist/pink Neck Exam: Positive: Supple Chest Exam: Positive: Normal air movement, Diminished (mild b/l), Other (no accessory muscle use or labored breathing) Heart Exam: Positive: Rate Normal, Regular Rhythm, Normal S1, Normal S2 Abdomen Exam: Positive: Normal bowel sounds, Soft; Negative: Tenderness Extremity Exam: Negative: Cyanosis, Edema, Swelling Skin Exam: Positive: Nl turgor and temperature Neuro Exam: Positive: Normal Speech, Normal Tone Psych Exam: Positive: Mental status NL, Mood NL, Memory Intact, Oriented x 3 Assessment /Plan Assessment 1. B/l lung lower lobe infiltrate/edema, likely 2/2 flash pulmonary edema from HTN emergency vs Community acquired PNA. Blood pressure control. Subjective fever with non-productive cough and dyspnea still present. S/p ceftriaxone and doxy in ER. Cont ceftriaxone and doxy, doxy changed from IV to PO. Sat well on RA, cont pulse ox and oxygen therapy. HFA inhalers PRN. Resp panel neg and procalcitonin pending . Rapid covid 19 done outpt returned to be neg. Isolation precaution 2. Hypokalemia, resolved. PMH of hypokalemia. S/p 1 k run and PO 40meq X3. Mg level low as well upon admission as well. Cont home med losartan. Hold home med HCTZ and omeprazole. Repeat BMP in the afternoon. R/o hyperaldosteronism 3. HTN emergency vs urgency. Chest pain likely 2/2 PNA vs pulmonary edema with trop negX2. Vitals standard of care. B/l lower lobe infiltrate/edema on CXR. Elevated blood pressure peaked with SBP>200, resolved, vitals currently stable. No obvious neurological symptoms noted. Vitals standard of care. S/p 10mg Amlodipine. Cont home med losartan and atenolol. Tele dc, EKG chest pain PRN, neg tropX2, additional EKG also ordered but no record in paper charts was able to be found. Combined with hypokalemia, r/o hyperaldosteronism. 4. Hypomagnesia, resolved. Mg 1.7, repleted with PO 400mg Mg-Ox X2. Repeat Mg 1.9; repeat Mg lvl in the afternoon. Hold home med HCTZ and omeprazole. 4. Hyperlipidemia. Cont home med statin and Aspirin DVT prophylaxis: lovenox, SCD GI prophylaxis: not indicated Plan/VTE VTE Prophylaxis Ordered?: Yes VS, I&O, 24H, Fishbone Vital Signs/I&O Vital Signs Date Time Temp Pulse Resp B/P (MAP) Pulse Ox O2 Delivery O2 Flow Rate FiO2 02/06/20 07:49 98.8 81 18 138/72 (94) 93 Room Air I&O- Last 24 Hours up to 6 AM 02/06/20 06:00 Intake Total 550 ml Output Total 600 ml Balance -50 ml Laboratory Data 24H LABS Laboratory Tests 2 02/05/20 15:06: Immature Granulocyte % (Auto) 0.2, Neutrophils (%) (Auto) 68.2H, Lymphocytes (%) (Auto) 20.7L, Monocytes (%) (Auto) 8.4H, Eosinophils (%) (Auto) 1.9, Basophils (%) (Auto) 0.6, Neutrophils # (Auto) 5.5, Lymphocytes # (Auto) 1.7, Monocytes # (Auto) 0.7, Eosinophils # (Auto) 0.2, Basophils # (Auto) 0.1, Nucleated Red Blood Cells % (auto) 0.0, Prothrombin Time 14.0, Prothromb Time International Ratio 1.11, Activated Partial Thromboplast Time 29.3, D-Dimer, Quantitative 759.79H, Anion Gap 9, Glomerular Filtration Rate > 60.0, Calcium Level 8.5L, Magnesium Level 1.7L, Total Bilirubin 0.3, Direct Bilirubin 0.1, Aspartate Amino Transf (AST/SGOT) 23, Alanine Aminotransferase (ALT/SGPT) 33, Alkaline Phosphatase 101, Total Creatine Kinase 65, Creatine Kinase MB 1.4, Creatine Kinase MB Relative Index 2.15, Troponin I < 0.02, WQ-Ers-G-Type Natriuretic Peptide 150H, Total Protein 6.8, Albumin 3.4, Albumin/Globulin Ratio 1.0L, Lipase 131, Free Thyroxine 1.17 02/05/20 21:08: Anion Gap 9, Glomerular Filtration Rate > 60.0, Calcium Level 8.4L, Troponin I < 0.02 02/06/20 07:11: Nucleated Red Blood Cells % (auto) 0.0, Anion Gap 6L, Glomerular Filtration Rate > 60.0, Calcium Level 8.9, Magnesium Level 1.9 CBC/BMP Laboratory Tests 02/05/20 15:06 02/05/20 21:08 02/06/20 07:11 Microbiology Microbiology 02/05/20 Respiratory Virus Panel (PCR) (ELIEL) - Final, Complete 02/05/20 Blood Culture, Received Pending 02/05/20 Blood Culture, Received Pending GME ATTESTATION GME ATTESTATION My faculty preceptor for this patient encounter was physically present during the encounter and was fully available. All aspects of the patient interview, examination, medical decision making process, and medical care plan development were reviewed and approved by the faculty preceptor. The faculty preceptor is aware and concurs with the plan as stated in the body of this note and will attest to such by his/her cosignature. JOZEF OBRIEN DO Feb 06, 2020 08:21
[2020-02-06] MEDS ORDERED: PREVNAR 13 VACCINE SYRINGE (CPT CODE:90670) IM ONE (09:00)
[2020-02-06] MEDS: DOXYCYCLINE HYCLATE 100MG TABLET PO SCH ×2 (12:24→21:03)
[2020-02-06 15:06] LABS: BLOOD UREA NITROGEN 10 MG/DL (7-18); CALCIUM LEVEL 8.7 MG/DL (8.8-10.2); CARBON DIOXIDE LEVEL 30 MEQ/L (21-32); CHLORIDE LEVEL 104 MEQ/L (98-107); CREATININE FOR GFR 0.79 MG/DL (0.55-1.30); GLOMERULAR FILTRATION RATE > 60.0 (>45); GLUCOSE, FASTING 113 MG/DL (70-100); POTASSIUM SERUM 3.5 MEQ/L (3.5-5.1); SODIUM LEVEL 141 MEQ/L (136-145)
[2020-02-06] MEDS ORDERED: MAALOX 30 ML SUSP *UDC PO ONE (15:45)
[2020-02-06] MEDS: ENOXAPARIN 30MG/0.3ML SYRINGE (J1650 PER 10MG) SC SCH (17:51)
[2020-02-06] MEDS ORDERED: cefTRIAXone SOD 1 GM in D5W MINI-BAG PLUS 50 ML IV SCH (18:00)
[2020-02-06] MEDS: CALCIUM CARBONATE 500 MG CHEW U/D PO PRN (19:23)
[2020-02-06] MEDS ORDERED: DOXYCYCLINE HYCLATE 100 MG in D5W MINI-BAG PLUS 100 ML IV SCH (21:00)
[2020-02-06] MEDS: ATORVASTATIN 20 MG TAB PO SCH (21:03)
[2020-02-06] MEDS: diphenhydrAMINE 50MG CAP PO PRN (21:03)
[2020-02-06] MEDS: ASPIRIN 81 MG ENTERIC TAB PO SCH (21:03)
[2020-02-06] MEDS: LOSARTAN 25 MG TAB PO SCH (21:05)
[2020-02-06] MEDS: atenoloL 50 MG TAB PO SCH (21:06)
--- NOTE | 2020-02-06 21:25 | ECGEPIP ---
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 No significant change compared with 11/10/2019. Electronically Signed on 02-06-2020 21:24:41 EDT by Denny Juarez
[2020-02-07] MEDS: ACETAMINOPHEN TAB 650MG DOSE (2X325MG) PO PRN (05:32)
[2020-02-07 06:00] VITALS: BP 132/71
[2020-02-07] MEDS: CALCIUM CARBONATE 500 MG CHEW U/D PO PRN (06:38)
[2020-02-07 07:07] LABS: HEMATOCRIT 37.1 % (36.0-47.0); HEMOGLOBIN 12.4 g/dl (12.0-15.5); MEAN CORPUSCULAR HEMOGLOBIN 29.5 pg (27.0-33.0); MEAN CORPUSCULAR HGB CONC 33.4 g/dl (32.0-36.5); MEAN CORPUSCULAR VOLUME 88.1 fl (80.0-96.0); PLATELET COUNT, AUTOMATED 230 10^3/uL (150-450); RED BLOOD COUNT 4.21 10^6/uL (4.00-5.40); WHITE BLOOD COUNT 7.5 10^3/uL (4.0-10.0)
[2020-02-07 07:32] LABS: BLOOD UREA NITROGEN 12 MG/DL (7-18); CALCIUM LEVEL 8.8 MG/DL (8.8-10.2); CARBON DIOXIDE LEVEL 27 MEQ/L (21-32); CHLORIDE LEVEL 103 MEQ/L (98-107); CREATININE FOR GFR 0.69 MG/DL (0.55-1.30); GLOMERULAR FILTRATION RATE > 60.0 (>45); GLUCOSE, FASTING 97 MG/DL (70-100); MAGNESIUM LEVEL 1.6 MG/DL (1.8-2.4); POTASSIUM SERUM 3.7 MEQ/L (3.5-5.1); SODIUM LEVEL 136 MEQ/L (136-145)
[2020-02-07] MEDS: DOXYCYCLINE HYCLATE 100MG TABLET PO SCH (08:08)
[2020-02-07] MEDS: POTASSIUM CHLORIDE 10 MEQ SR TABLET PO SCH (08:08)
[2020-02-07 09:00] VITALS: O2SAT 93
[2020-02-07] MEDS ORDERED: PREVNAR 13 VACCINE SYRINGE (CPT CODE:90670) IM SCH (09:00)
[2020-02-07] MEDS ORDERED: OMEPRAZOLE 20 MG CAP PO SCH (09:00)
[2020-02-07] MEDS ORDERED: MAG SULF 1GM/100ML (MAG RUN) 1 GM in IV 1 EA IV ONE ×2 (09:00→10:00)
[2020-02-07] MEDS ORDERED: LOSA50TA88 PO (10:28)
[2020-02-07] MEDS ORDERED: PEPC40TA12 PO (11:07)
[2020-02-07] MEDS ORDERED: DOXY100T PO (11:09)
[2020-02-07] MEDS ORDERED: CEFD300CAP PO (11:12)
--- NOTE | 2020-02-07 14:23 | DS.PDOC ---
Discharge Summary General Date of Admission Feb 05, 2020 at 16:56 Date of Discharge 02/07/2020 Discharge Summary PROCEDURES PERFORMED DURING STAY: [None]. ADMITTING DIAGNOSES: 1. B/l lung lower lobe infiltrate/edema, likely 2/2 pulmonary edema from HTN emergency vs Community acquired PNA 2. Hypokalemia 3. HTN emergency vs urgency 4. Hyperlipidemia DISCHARGE DIAGNOSES: 1. B/l lung lower lobe infiltrate/edema, likely 2/2 flash pulmonary edema from HTN emergency vs Community acquired PNA 2. Hypokalemia, resolved 3. HTN emergency/urgency. Chest pain likely 2/2 PNA vs pulmonary edema with trop negX2 4. Hypomagnesia 5. Hyperlipidemia. Cont home med statin and Aspirin COMPLICATIONS/CHIEF COMPLAINT: Bilateral Pneumonia Hypokalemia. HISTORY OF PRESENT ILLNESS: Pt is a 69 yo female who has PMH of HTN and hypokalemia presented to [facility] by ambulance after being sent by PCP for subjective fever, nonproductive cough, dyspnea it was noted that her CXR showed b/l lower lung infiltrates/edema. She was tested for COVID outpt with pending results. She reported that the most recent hospitalization was in November, and denies any sick contact. Exposure to animal including lizard and a fish, denies contact to farm animals or birds. Reported fever of 99F the night prior to admission. Denies any rhinorrhea, fa cial pain, sore throat, joint pain, or muscle pain. Pt also noted that she also noticed some chest pain while in the hospital with trop<0.02 in ER. Pt denied any other symptom except mentioned above HOSPITAL COURSE: Pt was found to have K of 2.7, and was given 1 k run and PO 40meq X3.Mag level was also low at 1.7 upon admission and was repleted, and home med omeprazole and HCTZ was d/c. Pt was noted to have elevated BP with SBP at one point peaked >250 with trop negX2. She was started on Tele with 1 extra dose of 10mg Amlodipine and continued home med losartan and atenolol; BP gradually decreased; EKG PRN chest pain was also ordered. Lab work was ordered to r/o hyperaldosternism. She was started on isolation precaution until resp panel and covid 19 ordered outpt returned neg; Rapid covid 19 done in ER was noted to be canceled.. She received ceftriaxone and doxy in ER and was cont during hospitalization. Pt has been sat >92% on RA during hospitalization. Procalcitonin returned neg; pt was determined to be cont on empiric tx for community acquired PNA. Omeprazole was restarted 02/06/2020 PM as pt was reporting GERD symptoms. On the day of discharge, pt reported chest congestion and exertional dyspnea(after walking for 5 min); denies any cough, fever, chills, chest pain, palpitation, or dyspnea. DISCHARGE MEDICATIONS: Please see below. ALLERGIES: Please see below. PHYSICAL EXAMINATION ON DISCHARGE: VITAL SIGNS: Please see below. GENERAL: Alert and awake, in no acute distress HEENT: Head normocephalic, atraumatic, mucosa moist and pink NECK: supple CARDIOVASCULAR EXAMINATION: RRR, no murmur, normal S1 and S2 RESPIRATORY EXAMINATION: CTA b/l, no rales,wheezing, or rhonchi b/l, no accessory muscle use, good air entry b/l ABDOMINAL EXAMINATION: soft, no guarding or distention, bowel sound aus in all 4 extremities EXTREMITIES: no obvious swelling/edema noted in all 4 extremities, moving all 4 extremities spontaneously, radial pulse pal b/l SKIN: normal skin turgor and temp NEUROLOGICAL EXAMINATION: memory and cognitive fxn grossly intact, no obvious neurological deficits noted PSYCHIATRIC EXAMINATION: Mood stable LABORATORY DATA: Please see below. IMAGING: CTA lung 02/05/2020 :No pulmonary embolism.Patchy ground-glass opacities centered peripherally in bilateral lungs. Duplex b/l LE 02/05/2020: no DVT PROGNOSIS: Fair ACTIVITY: [As tolerated]. DIET: As tolerated, recommended potassium-enriched food DISPOSITION: 01 Home, Self-Care. DISCHARGE PLAN AND INSTRUCTIONS: 1. Take medication as prescribed. Take OTC magnesium oxide 400mg daily until PCP appt 2. Follow up with PCP within one week, preferably within 3 days ITEMS TO FOLLOWUP ON ON OUTPATIENT: 1. HTN 2. Improved pulmonary edema 3. Hypomagnesia 4. Hypokalemia 5. Diarrhea 6. Pending labs including renin, aldosterone, metenephrine, and normetanephrine DISCHARGE CONDITION: [Improved]. TIME SPENT ON DISCHARGE: Greater than [35] minutes. Vital Signs/I&Os Vital Signs Date Time Temp Pulse Resp B/P (MAP) Pulse Ox O2 Delivery O2 Flow Rate FiO2 02/07/20 09:00 93 Room Air 6/6/20 06:00 98.5 82 20 132/71 (91) I&O- Last 24 Hours up to 6 AM 02/07/20 06:00 Intake Total 2700 ml Output Total 0 ml Balance 2700 ml Laboratory Data Labs 24H Laboratory Tests 2 02/06/20 14:32: Anion Gap 7L, Glomerular Filtration Rate > 60.0, Calcium Level 8.7L 02/07/20 06:37: Anion Gap 6L, Glomerular Filtration Rate > 60.0, Calcium Level 8.8, Nucleated Red Blood Cells % (auto) 0.0, Magnesium Level 1.6L CBC/BMP Laboratory Tests 02/06/20 14:32 02/07/20 06:37 Microbiology Microbiology 02/06/20 Gram Stain - Final, Resulted 02/06/20 Sputum Culture, Resulted Pending 02/05/20 Respiratory Virus Panel (PCR) (ELIEL) - Final, Complete 02/05/20 Blood Culture - Preliminary, Resulted No growth after 24 hours . All specim... 02/05/20 Blood Culture - Preliminary, Resulted No growth after 24 hours . All specim... Discharge Medications Scheduled Acetaminophen/Diphenhydramine (Acetaminophen Pm Caplet) 1 Each Tablet, 2 TAB PO QHS, (Reported) Aspirin (Aspir 81) 81 Mg Tablet.dr, 81 MG PO QPM, (Reported) Atenolol (Atenolol) 50 Mg Tablet, 100 MG PO QPM, (Reported) Atorvastatin Calcium (Atorvastatin Calcium) 40 Mg Tablet, 40 MG PO QPM, (Reported) Cefdinir (Cefdinir) 300 Mg Capsule, 300 MG PO BID Doxycycline Hyclate (Doxycycline Hyclate) 100 Mg Tablet, 100 MG PO BID Famotidine (Pepcid) 40 Mg Tablet, 40 MG PO DAILY Losartan Potassium (Losartan Potassium) 50 Mg Tablet, 50 MG PO DAILY Potassium Chloride (Potassium Chloride) 10 Meq Tablet.er, 20 MEQ PO DAILY, (Reported) Turmeric/Turmeric Root Extract (Turmeric 500 mg Capsule) 1 Each Capsule, 1,000 MG PO DAILY, (Reported) Allergies Coded Allergies: lisinopril (Verified Adverse Reaction, Unknown, COUGH, 11/10/19) GME ATTESTATION GME ATTESTATION My faculty preceptor for this patient encounter was physically present during the encounter and was fully available. All aspects of the patient interview, examination, medical decision making process, and medical care plan development were reviewed and approved by the faculty preceptor. The faculty preceptor is aware and concurs with the plan as stated in the body of this note and will att est to such by his/her cosignature. JOZEF OBRIEN DO Feb 07, 2020 14:23
== END 2020-02-07 12:28 | disposition home or self-care (01) | DRG 189 ==
LOC: M ED 14:25 → M ED INP 16:56 → ENRESERV 17:10 → M 4MAIN 19:38 → ENRESERV 02-06 12:08 → M MS5PR 02-06 12:50
PROVIDERS: ADMIT Internal Medicine; ATTEND Internal Medicine
DX: J81.1 Chronic pulmonary edema (principal); J18.9 Pneumonia, unspecified organism; I16.0 Hypertensive urgency; E78.5 Hyperlipidemia, unspecified; E83.42 Hypomagnesemia; E87.6 Hypokalemia; I10 Essential (primary) hypertension; R19.7 Diarrhea, unspecified; Z79.82 Long term (current) use of aspirin; Z79.899 Other long term (current) drug therapy; Z88.8 Allergy status to other drugs, medicaments and biological substances; M16.12 Unilateral primary osteoarthritis, left hip

== ENCOUNTER → 2020-02-05 | Outpatient (REF) | payer MEDICARE, MEDICAID ==
[~2020-02-05] MED LIST changes: -CEFD300CAP PO; -DOXY100T PO; -LOSA50TA88 PO; -PEPC40TA12 PO
[2020-02-05 11:24] LABS: BASO % 0.5 % (0.0-1.0); EOS # 0.2 10^3/uL (0.0-0.5); HEMATOCRIT 39.9 % (36.0-47.0); HEMOGLOBIN 13.4 g/dl (12.0-15.5); LYMPH # 2.1 10^3/uL (1.5-5.0); LYMPH % 25.4 % (24.0-44.0); MEAN CORPUSCULAR HEMOGLOBIN 28.9 pg (27.0-33.0); MEAN CORPUSCULAR HGB CONC 33.6 g/dl (32.0-36.5); MONO # 0.8 10^3/uL (0.0-0.8); NEUTROPHILS # 5.2 10^3/uL (1.5-8.5); NEUTROPHILS % 61.7 % (36.0-66.0); PLATELET COUNT, AUTOMATED 279 10^3/uL (150-450); RED BLOOD COUNT 4.64 10^6/uL (4.00-5.40); WHITE BLOOD COUNT 8.4 10^3/uL (4.0-10.0)
[2020-02-05 11:42] LABS: BLOOD UREA NITROGEN 9 MG/DL (7-18); CALCIUM LEVEL 8.8 MG/DL (8.8-10.2); CARBON DIOXIDE LEVEL 29 MEQ/L (21-32); CHLORIDE LEVEL 99 MEQ/L (98-107); CREATININE FOR GFR 0.75 MG/DL (0.55-1.30); GLOMERULAR FILTRATION RATE > 60.0 (>45); GLUCOSE, FASTING 112 MG/DL (70-100); POTASSIUM SERUM 3.3 MEQ/L (3.5-5.1); SODIUM LEVEL 138 MEQ/L (136-145)
== END ==
LOC: M SFHCPLAZ 10:11
PROVIDERS: ATTEND Family Medicine
DX: R06.02 Shortness of breath (principal); R50.9 Fever, unspecified; R05 Cough; Z11.59 Encounter for screening for other viral diseases
CPT/HCPCS: 36415; 80048; 85025; U0003

== ENCOUNTER → 2020-02-05 | Outpatient (CLI) | payer MEDICARE, MEDICAID ==
--- NOTE | 2020-02-05 11:07 | REPPI ---
CHEST, TWO VIEWS: Two views of the chest are performed and compared to a prior study of 08/07/2017. Bilateral lower lung interstitial infiltrates are noted. The heart is normal in size. Mediastinal silhouette is unremarkable. There are degenerative changes of the spine. IMPRESSION: Bilateral lower lung interstitial infiltrates/ edema. Electronically Signed by John Zamarripa MD 02/05/2020 07:42 P
== END ==
LOC: M PLAIMG 10:13
PROVIDERS: ATTEND Family Medicine
DX: R91.8 Other nonspecific abnormal finding of lung field (principal); R06.02 Shortness of breath

== ENCOUNTER → 2020-02-12 | Outpatient (CLI) | payer MEDICARE, MEDICAID ==
[~2020-02-12] MED LIST changes: +ACET25TA12 PO; -ASPI81TA85 PO; +ASPI81TA86 PO; +CEFD300CAP PO; +DOXY100T PO; +HYDR-3490 PO; -HYDR25TAB PO; +LOSA50TA88 PO; +PEPC40TA12 PO
--- NOTE | 2020-02-12 15:31 | REPPI ---
REASON FOR EXAM: Followup. Multiple priors are reviewed, the latest 02/05/2020 and the next latest 08/07/2017. Bibasilar opacities seen on the prior exam have not changed significantly. The pleural angles are again seen to be sharp. No new opacities have developed. There is no change in the cardiomediastinal silhouette or imaged osseous structures. IMPRESSION: No significant change. Persistent opacities . Electronically Signed by Higinio Deleon DO 02/12/2020 05:06 P
== END ==
LOC: M PLAIMG 08:13
PROVIDERS: ATTEND Family Medicine
DX: J18.9 Pneumonia, unspecified organism (principal)

== ENCOUNTER → 2020-02-12 | Outpatient (REF) | payer MEDICARE, MEDICAID ==
[~2020-02-12] MED LIST changes: +ASPI81TA85 PO; -ASPI81TA86 PO; -HYDR-3490 PO; +HYDR25TAB PO
[2020-02-12 10:23] LABS: BASO # 0.1 10^3/uL (0.0-0.2); BASO % 0.7 % (0.0-1.0); EOS # 0.2 10^3/uL (0.0-0.5); EOS % 3.2 % (0.0-3.0); HEMATOCRIT 43.4 % (36.0-47.0); HEMOGLOBIN 14.4 g/dl (12.0-15.5); LYMPH % 26.7 % (24.0-44.0); MEAN CORPUSCULAR HEMOGLOBIN 29.5 pg (27.0-33.0); MEAN CORPUSCULAR HGB CONC 33.2 g/dl (32.0-36.5); MEAN CORPUSCULAR VOLUME 88.9 fl (80.0-96.0); MONO # 0.8 10^3/uL (0.0-0.8); MONO % 10.6 % (0.0-5.0); NEUTROPHILS # 4.3 10^3/uL (1.5-8.5); NEUTROPHILS % 58.4 % (36.0-66.0); PLATELET COUNT, AUTOMATED 308 10^3/uL (150-450); RED BLOOD COUNT 4.88 10^6/uL (4.00-5.40); WHITE BLOOD COUNT 7.4 10^3/uL (4.0-10.0)
[2020-02-12 10:47] LABS: BLOOD UREA NITROGEN 11 MG/DL (7-18); CALCIUM LEVEL 9.4 MG/DL (8.8-10.2); CARBON DIOXIDE LEVEL 28 MEQ/L (21-32); CHLORIDE LEVEL 102 MEQ/L (98-107); CREATININE FOR GFR 0.71 MG/DL (0.55-1.30); GLOMERULAR FILTRATION RATE > 60.0 (>45); GLUCOSE, FASTING 96 MG/DL (70-100); MAGNESIUM LEVEL 2.2 MG/DL (1.8-2.4); POTASSIUM SERUM 5.1 MEQ/L (3.5-5.1); SODIUM LEVEL 134 MEQ/L (136-145)
== END ==
LOC: M PLALAB 08:04
PROVIDERS: ATTEND Family Medicine
DX: J18.9 Pneumonia, unspecified organism (principal); I10 Essential (primary) hypertension; E83.42 Hypomagnesemia

== ENCOUNTER → 2020-02-18 | Outpatient (REF) | payer MEDICARE, MEDICAID ==
[2020-02-18 15:36] LABS: BLOOD UREA NITROGEN 10 MG/DL (7-18); CALCIUM LEVEL 9.2 MG/DL (8.8-10.2); CARBON DIOXIDE LEVEL 28 MEQ/L (21-32); CHLORIDE LEVEL 103 MEQ/L (98-107); CREATININE FOR GFR 0.75 MG/DL (0.55-1.30); GLOMERULAR FILTRATION RATE > 60.0 (>45); GLUCOSE, FASTING 102 MG/DL (70-100); POTASSIUM SERUM 4.6 MEQ/L (3.5-5.1); SODIUM LEVEL 137 MEQ/L (136-145)
== END ==
LOC: M SFHCPLAZ 09:19
PROVIDERS: ATTEND Family Medicine
DX: E87.6 Hypokalemia (principal)
CPT/HCPCS: 80048; G0463

== ENCOUNTER → 2020-02-24 | Outpatient (CLI) | payer MEDICARE, MEDICAID ==
[2020-02-24 10:58] LABS: BLOOD UREA NITROGEN 8 MG/DL (7-18); CALCIUM LEVEL 9.3 MG/DL (8.8-10.2); CARBON DIOXIDE LEVEL 27 MEQ/L (21-32); CHLORIDE LEVEL 104 MEQ/L (98-107); CREATININE FOR GFR 0.81 MG/DL (0.55-1.30); GLOMERULAR FILTRATION RATE > 60.0 (>45); GLUCOSE, FASTING 110 MG/DL (70-100); POTASSIUM SERUM 4.4 MEQ/L (3.5-5.1); SODIUM LEVEL 137 MEQ/L (136-145)
== END ==
LOC: M PLALAB 08:07
PROVIDERS: ATTEND Family Medicine
DX: E87.6 Hypokalemia (principal)

== ENCOUNTER → 2020-03-01 | Outpatient (CLI) | payer MEDICARE, MEDICAID ==
[~2020-03-01] MED LIST changes: -ASPI81TA85 PO; +ASPI81TA86 PO
--- NOTE | 2020-03-01 09:43 | REPPI ---
Clinical: Pneumonia. Technique: PA and lateral. Comparison: 02/12/2020. Findings: Mediastinum and cardiac silhouette are stable. Lung milton demonstrate advanced fibrosis and interstitial changes similar to prior examination. No definite acute consolidation. No effusion. No pneumothorax. Skeletal structures demonstrate age-related osteopenia and degenerative changes. Impression: Advanced fibrosis and interstitial changes. No obvious focal consolidation. Electronically Signed by Fabian Pillai MD 03/01/2020 09:34 A
[2020-03-01 12:47] LABS: BLOOD UREA NITROGEN 10 MG/DL (7-18); CARBON DIOXIDE LEVEL 28 MEQ/L (21-32); CHLORIDE LEVEL 101 MEQ/L (98-107); CREATININE FOR GFR 0.75 MG/DL (0.55-1.30); GLOMERULAR FILTRATION RATE > 60.0 (>45); GLUCOSE, FASTING 109 MG/DL (70-100); SODIUM LEVEL 136 MEQ/L (136-145)
== END ==
LOC: M PLALAB 09:15
PROVIDERS: ATTEND Family Medicine
DX: E87.6 Hypokalemia (principal); J18.9 Pneumonia, unspecified organism
CPT/HCPCS: 36415; 71046; 80048; G0463

== ENCOUNTER → 2020-03-09 | Outpatient (CLI) | payer MEDICARE, MEDICAID ==
[2020-03-09 13:12] LABS: C REACTIVE PROTEIN QUANTITATIV < 0.30 MG/DL (0.00-0.30); RHEUMATOID FACTOR QUANT 17.4 IU/ML (<15.0)
[2020-03-22 17:08] LABS: ANA (HEP2) Positive (.); ANCA-ATYPICAL <1:20 titer (Neg:<1:20); ANTI DS-DNA AB Positive (Negative); ANTI JO-1 ANTIBODIES <20 Units (<20); ASPERGILLUS FUMIGATUS AB Negative (Negative); AUREOBASIDIUM PULLULANS Negative (Negative); CYCLIC CITRULLINATED PEPTIDE 7 units (0-19); CYTOPLASMIC NEUTROP AB ANCA-C <1:20 titer (Neg:<1:20); MICROPOLYSPORA FAENI AB Negative (Negative); PERINUCLEAR AB ANCA-P <1:20 titer (Neg:<1:20); PIGEON SERUM AB Negative (Negative); RNP ANTIBODY 0.5 AI (0.0-0.9); SMITHS ANTIBODY < 0.2 AI (0.0-0.9); THERMOACTINOMYCES SACCHARI Negative (Negative); THERMOACTINOMYCES VULGARIS Negative (Negative)
== END ==
LOC: M PLALAB 07:57
PROVIDERS: ATTEND Internal Medicine Pulmonary Disease
DX: J84.9 Interstitial pulmonary disease, unspecified (principal)

== ENCOUNTER → 2020-03-15 | Outpatient (REF) | payer MEDICARE, MEDICAID ==
[2020-03-15 15:01] LABS: BLOOD UREA NITROGEN 13 MG/DL (7-18); CARBON DIOXIDE LEVEL 27 MEQ/L (21-32); CHLORIDE LEVEL 101 MEQ/L (98-107); CREATININE FOR GFR 0.81 MG/DL (0.55-1.30); GLOMERULAR FILTRATION RATE > 60.0 (>45); GLUCOSE, FASTING 125 MG/DL (70-100); POTASSIUM SERUM 3.4 MEQ/L (3.5-5.1); SODIUM LEVEL 137 MEQ/L (136-145)
[2020-03-15 16:12] LABS: HEMOGLOBIN A1c 6.3 %
== END ==
LOC: M SFHCPLAZ 08:53
PROVIDERS: ATTEND Family Medicine
DX: R73.03 Prediabetes (principal); E87.6 Hypokalemia
CPT/HCPCS: 36415; 80048; 83036; G0463

== ENCOUNTER → 2020-04-02 | Outpatient (REF) | payer MEDICARE, MEDICAID ==
[2020-05-20 08:29] LABS: BLOOD UREA NITROGEN 11 MG/DL (7-18); CALCIUM LEVEL 9.3 MG/DL (8.8-10.2); CARBON DIOXIDE LEVEL 30 MEQ/L (21-32); CHLORIDE LEVEL 108 MEQ/L (98-107); CREATININE FOR GFR 0.75 MG/DL (0.55-1.30); GLOMERULAR FILTRATION RATE > 60.0 (>45); GLUCOSE, FASTING 78 MG/DL (70-100); POTASSIUM SERUM 3.9 MEQ/L (3.5-5.1); SODIUM LEVEL 141 MEQ/L (136-145)
== END ==
LOC: M SFHCPLAZ 13:59
PROVIDERS: ATTEND Family Medicine
DX: Z01.818 Encounter for other preprocedural examination (principal); E87.6 Hypokalemia

== ENCOUNTER → 2020-04-12 | Outpatient (REF) | payer MEDICARE, MEDICAID ==
[2020-05-26 16:41] LABS: BLOOD UREA NITROGEN 14 MG/DL (7-18); CALCIUM LEVEL 9.8 MG/DL (8.8-10.2); CARBON DIOXIDE LEVEL 30 MEQ/L (21-32); CHLORIDE LEVEL 100 MEQ/L (98-107); CREATININE FOR GFR 0.97 MG/DL (0.55-1.30); GLOMERULAR FILTRATION RATE > 60.0 (>45); GLUCOSE, FASTING 105 MG/DL (70-100); POTASSIUM SERUM 3.9 MEQ/L (3.5-5.1); SODIUM LEVEL 136 MEQ/L (136-145)
== END ==
LOC: M SFHCPLAZ 13:11
PROVIDERS: ATTEND Family Medicine
DX: E87.6 Hypokalemia (principal)

== ENCOUNTER → 2020-05-13 | Outpatient (CLI) | payer MEDICARE, MEDICAID ==
--- NOTE | 2020-06-01 13:06 | REP ---
NON-CONTRAST CHEST CT: 05/13/20 CLINICAL: Interstitial pulmonary disease. TECHNIQUE: Axial non-contrast images from the thoracic inlet to the upper abdomen with coronal and sagittal reformations. COMPARISON: 02/05/20. FINDINGS: Moderate to early advanced emphysematous changes are appreciated along with early perihilar and lower lobe bronchiectasis. There is subtle early to moderate subpleural fibrotic changes (right greater than left). No acute consolidation, obvious significant nodule or obvious mass lesion noted. The previously noted patchy ground-glass opacities have resolved. Non-specific mediastinal lymph nodes measure up to 9mm. further evaluation of the mediastinum demonstrates atherosclerotic changes to the thoracic aorta without aneurysm. No cardiomegaly or pericardial effusion. Surrounding musculoskeletal structures demonstrate age related changes without focal osseous abnormality. IMPRESSION: 1. Emphysematous changes with mild lower lobe bronchiectasis. 2. Suspected early subpleural interstitial fibrosis. 3. No acute consolidation, effusion, or mass lesion. The previously noted scattered ground-glass opacities on 02/05/20 have resolved. MTDD
== END ==
LOC: M RAD 07:22
PROVIDERS: ATTEND Internal Medicine Pulmonary Disease
DX: J84.9 Interstitial pulmonary disease, unspecified (principal); J43.9 Emphysema, unspecified; J47.9 Bronchiectasis, uncomplicated

== ENCOUNTER → 2020-05-27 | Outpatient (CLI) | payer MEDICARE, MEDICAID | LOC: M PLALAB 10:02 | PROVIDERS: ATTEND Physician Assistant Medical | DX: K21.9 Gastro-esophageal reflux disease without esophagitis (principal) ==

== ENCOUNTER → 2020-10-04 | Outpatient (CLI) | payer MEDICARE, MEDICAID ==
--- NOTE | 2020-10-06 11:40 | ECHO ---
DATE OF PROCEDURE: 10/04/2020 Age: 70 Gender: Female Height: 162 cm Weight: 78 kg REFERRING PHYSICIAN: Dr. Alice Thompson. INDICATION: Pulmonary disease, unspecified. MEASUREMENTS: 2D Measurements: Intraventricular septum 1.00 cm Posterior wall 1.05 cm Left ventricle diastole 4.0 cm Aortic root 2.9 cm Left atrium 3.3 cm Left atrium volume index 20 Inferior vena cava 1.1 cm (more than 50% respiratory variation) Doppler Measurements: No aortic stenosis No aortic regurgitation Aortic valve velocity 142 cm/s LVOT velocity 110 cm/s LVOT VTI 27.6 cm Trace mitral regurgitation Mitral E velocity 82.7 cm/s Mitral A velocity 81.8 cm/s Mitral deceleration time 180 msec Trace tricuspid regurgitation No pulmonic regurgitation Pulmonary artery acceleration time 110 msec MITRAL ANNULAR TISSUE DOPPLER E prime lateral 8.5 cm/s, E prime septal 7.3 cm/s DESCRIPTION: Rhythm was sinus. This was a moderately technically difficult echocardiogram. This was a 2D, M-mode, color flow Doppler, and pulsed wave Doppler examination including mitral annular tissue Doppler. CONCLUSIONS: 1. Normal left ventricle internal dimensions and wall thickness. Normal regional LV wall motion and wall thickening. Normal LV systolic function. LVEF 60% by visual estimate. Normal LV diastolic function for age. Normal left atrial volume index. 2. Normal right ventricle size and systolic function. Right atrium appeared in size. Pulmonary artery systolic pressure estimated to be at the upper limits of normal. Suggestive of normal central venous pressure. 3. Very mild aortic valve sclerosis of a 3-cuspid aortic valve. No aortic regurgitation. 4. No pericardial effusion. 5. Otherwise normal appearing echocardiogram Doppler findings. [facility]
== END ==
LOC: M CARPUL 09:07
PROVIDERS: ATTEND Internal Medicine Pulmonary Disease
DX: J84.9 Interstitial pulmonary disease, unspecified (principal); I10 Essential (primary) hypertension

== ENCOUNTER → 2020-10-11 | Outpatient (CLI) | payer MEDICARE, MEDICAID ==
[~2020-10-11] MED LIST changes: +HYDR-3490 PO; -HYDR25TAB PO
[2020-10-11 16:11] LABS: ALBUMIN 3.7 GM/DL (3.2-5.2); ALT/SGPT 62 U/L (12-78); BILIRUBIN,TOTAL 0.4 MG/DL (0.2-1.0); BLOOD UREA NITROGEN 10 MG/DL (7-18); CALCIUM LEVEL 9.2 MG/DL (8.8-10.2); CARBON DIOXIDE LEVEL 31 MEQ/L (21-32); CHLORIDE LEVEL 97 MEQ/L (98-107); CHOLESTEROL LEVEL 230 MG/DL (<200); CREATININE FOR GFR 0.87 MG/DL (0.55-1.30); FREE T4 0.97 NG/DL (0.76-1.46); GLOMERULAR FILTRATION RATE > 60.0 (>45); GLUCOSE, FASTING 74 MG/DL (70-100); HDL CHOLESTEROL 105 MG/DL (>40); LDL CHOLESTEROL 104 MG/DL (<100); NON-HDL-C 125 MG/DL; POTASSIUM SERUM 4.3 MEQ/L (3.5-5.1); SODIUM LEVEL 134 MEQ/L (136-145); TOTAL PROTEIN 6.9 GM/DL (6.4-8.2); TRIGLYCERIDES LEVEL 103 MG/DL (<150)
== END ==
LOC: M PLALAB 09:33
PROVIDERS: ATTEND Nurse Practitioner Family
DX: I10 Essential (primary) hypertension (principal); E78.2 Mixed hyperlipidemia

== ENCOUNTER → 2020-11-12 | Outpatient (CLI) | payer MEDICARE, MEDICAID ==
[2020-11-12 11:06] LABS: BASO % 0.6 % (0.0-1.0); EOS # 0.1 10^3/uL (0.0-0.5); EOS % 1.7 % (0.0-3.0); LYMPH # 1.7 10^3/uL (1.5-5.0); LYMPH % 25.9 % (24.0-44.0); MONO # 0.8 10^3/uL (0.0-0.8); NEUTROPHILS # 3.7 10^3/uL (1.5-8.5); NEUTROPHILS % 58.5 % (36.0-66.0)
[2020-11-12 11:44] LABS: ALBUMIN 3.9 GM/DL (3.2-5.2); ALT/SGPT 51 U/L (12-78); BILIRUBIN,TOTAL 0.4 MG/DL (0.2-1.0); BLOOD UREA NITROGEN 10 MG/DL (7-18); CALCIUM LEVEL 9.7 MG/DL (8.8-10.2); CARBON DIOXIDE LEVEL 31 MEQ/L (21-32); CHLORIDE LEVEL 95 MEQ/L (98-107); CREATININE FOR GFR 0.82 MG/DL (0.55-1.30); GLOMERULAR FILTRATION RATE > 60.0 (>45); GLUCOSE, FASTING 114 MG/DL (70-100); POTASSIUM SERUM 4.4 MEQ/L (3.5-5.1); SODIUM LEVEL 130 MEQ/L (136-145); TOTAL PROTEIN 6.9 GM/DL (6.4-8.2)
== END ==
LOC: M PLALAB 08:00
PROVIDERS: ATTEND Internal Medicine
DX: M32.9 Systemic lupus erythematosus, unspecified (principal)

== ENCOUNTER → 2021-10-04 | Outpatient (CLI) | payer MEDICARE ==
[~2021-10-04] MED LIST changes: -HM P99TA PO; +LOSA25TA13 PO; -LOSA25TA14 PO; +LOSA50TA28 PO; -LOSA50TA88 PO; -OMEP-221 PO; +OMEP40CA5 PO; -POTA10TA14 PO; +POTA1TAB24 PO; +POTA99TA14 PO
== END ==
LOC: M PLAIMG 11:28
PROVIDERS: ATTEND Nurse Practitioner Family
DX: M19.011 Primary osteoarthritis, right shoulder (principal)

== ENCOUNTER → 2022-01-12 | Outpatient (CLI) | payer MEDICARE | LOC: M SOG 08:46 | PROVIDERS: ATTEND Orthopaedic Surgery Adult Reconstructive Orthopaedic Surgery | DX: T84.84XA Pain due to internal orthopedic prosthetic devices, implants and grafts, initial encounter (principal); Z96.651 Presence of right artificial knee joint ==

== ENCOUNTER → 2022-01-13 | Outpatient (CLI) | payer MEDICARE ==
[2022-01-13 09:57] LABS: BASO # 0.1 10^3/uL (0.0-0.2); BASO % 0.7 % (0.0-1.0); EOS # 0.3 10^3/uL (0.0-0.5); EOS % 4.3 % (0.0-3.0); HEMATOCRIT 37.9 % (36.0-47.0); LYMPH # 2.6 10^3/uL (1.5-5.0); LYMPH % 37.5 % (24.0-44.0); MEAN CORPUSCULAR HEMOGLOBIN 30.4 pg (27.0-33.0); MEAN CORPUSCULAR HGB CONC 34.3 g/dl (32.0-36.5); MEAN CORPUSCULAR VOLUME 88.8 fl (80.0-96.0); MONO # 0.8 10^3/uL (0.0-0.8); NEUTROPHILS # 3.2 10^3/uL (1.5-8.5); NEUTROPHILS % 46.2 % (36.0-66.0); PLATELET COUNT, AUTOMATED 242 10^3/uL (150-450); RED BLOOD COUNT 4.27 10^6/uL (4.00-5.40); WHITE BLOOD COUNT 6.9 10^3/uL (4.0-10.0)
[2022-01-13 10:38] LABS: ERYTHROCYTE SEDIMENTATION RATE 13 mm/hr (0-30)
== END ==
LOC: M PLALAB 07:40
PROVIDERS: ATTEND Orthopaedic Surgery Adult Reconstructive Orthopaedic Surgery
DX: T84.84XA Pain due to internal orthopedic prosthetic devices, implants and grafts, initial encounter (principal)

== ENCOUNTER → 2022-01-20 | Outpatient (CLI) | payer MEDICARE ==
[~2022-01-20] MED LIST changes: +E-Z-GAS II EFFERVESCENT PACKET (SODIUM BICARB./CITRIC ACID/SIMETHICONE) As Ordered ONE; +E-Z-HD 98% w/w 340GM SUSP BTL As Ordered ONE; +E-Z-PAQUE 96% w/w SUSP 176GM BTL As Ordered ONE
== END ==
LOC: M RAD 07:52
PROVIDERS: ATTEND Nurse Practitioner Family
DX: K21.9 Gastro-esophageal reflux disease without esophagitis (principal); R10.13 Epigastric pain; K44.9 Diaphragmatic hernia without obstruction or gangrene

== ENCOUNTER → 2022-02-06 | Outpatient (REF) | payer MEDICARE ==
[~2022-02-06] MED LIST changes: -E-Z-GAS II EFFERVESCENT PACKET (SODIUM BICARB./CITRIC ACID/SIMETHICONE) As Ordered ONE; -E-Z-HD 98% w/w 340GM SUSP BTL As Ordered ONE; -E-Z-PAQUE 96% w/w SUSP 176GM BTL As Ordered ONE
== END ==
LOC: M LAB REF 16:52
PROVIDERS: ATTEND Nurse Practitioner Family
DX: N39.0 Urinary tract infection, site not specified (principal); R35.0 Frequency of micturition

== ENCOUNTER → 2022-02-15 | Outpatient (CLI) | payer MEDICARE | LOC: M RAD 08:47 | PROVIDERS: ATTEND Orthopaedic Surgery Adult Reconstructive Orthopaedic Surgery | DX: T84.84XA Pain due to internal orthopedic prosthetic devices, implants and grafts, initial encounter (principal) | CPT/HCPCS: 78315; A9503 ==

== ENCOUNTER 2022-11-12 16:34 | Emergency (ER) | payer MEDICARE, MEDICAID ==
[~2022-11-12] VITALS: Ht 162.6 cm; Wt 75.1 kg
[2022-11-12 17:35] LABS: BASO % 0.2 % (0.0-1.0); EOS % 0.1 % (0.0-3.0); HEMATOCRIT 38.7 % (36.0-47.0); HEMOGLOBIN 13.5 g/dl (12.0-15.5); LYMPH # 1.5 10^3/uL (1.5-5.0); LYMPH % 16.1 % (24.0-44.0); MEAN CORPUSCULAR HEMOGLOBIN 29.7 pg (27.0-33.0); MEAN CORPUSCULAR HGB CONC 34.9 g/dl (32.0-36.5); MEAN CORPUSCULAR VOLUME 85.1 fl (80.0-96.0); MONO # 0.6 10^3/uL (0.0-0.8); MONO % 6.1 % (2.0-8.0); NEUTROPHILS # 7.2 10^3/uL (1.5-8.5); NEUTROPHILS % 77.2 % (36.0-66.0); PLATELET COUNT, AUTOMATED 241 10^3/uL (150-450); RED BLOOD COUNT 4.55 10^6/uL (4.00-5.40); WHITE BLOOD COUNT 9.3 10^3/uL (4.0-10.0)
[2022-11-12] MEDS ORDERED: KETOROLAC 30 MG/ML 1ML VIAL IV ONE (18:00)
[2022-11-12] MEDS ORDERED: NS 1,000 ML IV ONE ×2 (18:00→20:40)
[2022-11-12] MEDS ORDERED: ONDANSETRON 4MG 2ML VIAL IV ONE (18:00)
[2022-11-12 18:04] LABS: ALBUMIN 3.8 G/DL (3.2-5.2); BILIRUBIN,DIRECT 0.2 MG/DL (<0.4); BILIRUBIN,TOTAL 0.5 MG/DL (0.3-1.2); TOTAL PROTEIN 6.8 G/DL (5.7-8.2)
[2022-11-12] MEDS ORDERED: ISOVUE-370 76% 100ML VIAL As Ordered ONE (18:10)
[2022-11-12] MEDS ORDERED: KCL 10MEQ/100ML SWI (KRUN) 10 MEQ in IV 1 EA IV ONE (18:15)
[2022-11-12] MEDS ORDERED: POTASSIUM CHLORIDE 10MEQ SR TABLET PO ONE (18:35)
[2022-11-12] MEDS ORDERED: ONDA4TAB6 PO (20:42)
[2022-11-12] MEDS ORDERED: DICY10CA13 PO (20:42)
[2022-11-12] MEDS ORDERED: atenoloL 50 MG TAB PO ONE (20:50)
[2022-11-12] MEDS ORDERED: LOSARTAN 50MG TABLET PO ONE (20:50)
[2022-11-12 20:51] VITALS: BP 171/83
[2022-11-12 21:52] VITALS: BP 154/82
== END 2022-11-12 22:10 | disposition home or self-care (01) ==
LOC: M ED 16:34
DX: K52.9 Noninfective gastroenteritis and colitis, unspecified (principal); I10 Essential (primary) hypertension; E78.5 Hyperlipidemia, unspecified; K21.9 Gastro-esophageal reflux disease without esophagitis; Z88.8 Allergy status to other drugs, medicaments and biological substances; Z79.82 Long term (current) use of aspirin; Z79.02 Long term (current) use of antithrombotics/antiplatelets; Z79.811 Long term (current) use of aromatase inhibitors; Z79.899 Other long term (current) drug therapy
CPT/HCPCS: 36415; 74177; 80047; 80076; 83690; 85025; 93005; 93041; 94760; 96361; 96374; 96375; 99285; J2405; Q9967

== ENCOUNTER → 2022-11-13 | Outpatient (REF) | payer MEDICARE, MEDICAID ==
[~2022-11-13] MED LIST changes: +DICY10CA13 PO; +ONDA4TAB6 PO
== END ==
LOC: M LAB REF 09:53
PROVIDERS: ATTEND Physician Assistant
DX: R19.7 Diarrhea, unspecified (principal)

== ENCOUNTER → 2022-12-21 | Outpatient (CLI) | payer MEDICARE, MEDICAID ==
[2022-12-21 11:18] LABS: ALBUMIN 3.8 G/DL (3.2-5.2); ALKALINE PHOSPHATASE 98 U/L (46-116); ALT/SGPT 38 U/L (7.0-40); AST/SGOT 33 U/L (<34); BILIRUBIN,TOTAL 0.6 MG/DL (0.3-1.2); BLOOD UREA NITROGEN 10 MG/DL (9-23); CALCIUM LEVEL 9.6 MG/DL (8.3-10.6); CARBON DIOXIDE LEVEL 31 MMOL/L (20-31); CHLORIDE LEVEL 97 MMOL/L (98-107); CHOLESTEROL LEVEL 221 MG/DL (<200); CHOLESTEROL RISK RATIO 2.72 (<5); GLOMERULAR FILTRATION RATE > 60.0 (>39); GLUCOSE, FASTING 91 MG/DL (74-106); HDL CHOLESTEROL 81.2 MG/DL (>40); LDL CHOLESTEROL 121.6 MG/DL (<100); NON-HDL-C 139.8 MG/DL; POTASSIUM SERUM 4.1 MMOL/L (3.5-5.1); SODIUM LEVEL 132 MMOL/L (136-145); TRIGLYCERIDES LEVEL 91 MG/DL (<150)
== END ==
LOC: M PLALAB 07:47
PROVIDERS: ATTEND Nurse Practitioner Family
DX: E78.2 Mixed hyperlipidemia (principal)

== ENCOUNTER → 2023-07-02 | Outpatient (REF) | payer MEDICARE, MEDICAID ==
[~2023-07-02] MED LIST changes: +DICY-61 PO; -DICY10CA13 PO
[2023-07-02 13:12] LABS: APPEARANCE, URINE CLEAR (CLEAR); BACTERIA, URINE AUTO NEGATIVE (NEGATIVE); BILIRUBIN, URINE AUTO NEGATIVE (NEGATIVE); BLOOD, URINE BLOOD NEGATIVE (NEGATIVE); COLOR, URINE YELLOW (YELLOW); GLUCOSE, URINE (UA) AUTO NEGATIVE (NEGATIVE); KETONE, URINE AUTO NEGATIVE (NEGATIVE); LEUKOCYTE ESTERASE, URINE AUTO 1+ (NEGATIVE); NITRITE, URINE AUTO NEGATIVE (NEGATIVE); PROTEIN, URINE AUTO NEGATIVE (NEGATIVE); RBC, URINE AUTO 0 /HPF (0-3); SPECIFIC GRAVITY URINE AUTO 1.005 (1.002-1.035); SQUAMOUS EPITHELIAL CELL UR AU 1 /HPF (0-6); UROBILINOGEN, URINE AUTO 0.2 mg/dL (0.0-2.0); WBC, URINE AUTO 23 /HPF (0-3)
== END ==
LOC: M LAB REF 12:47
PROVIDERS: ATTEND Nurse Practitioner Family
DX: R30.0 Dysuria (principal)

== ENCOUNTER 2023-07-03 05:13 | Emergency (ER) | payer MEDICARE, MEDICAID ==
[~2023-07-03] VITALS: Ht 162.6 cm; Wt 74.7 kg
[2023-07-03 05:16] VITALS: O2SAT 94
[2023-07-03] MEDS ORDERED: ACETAMINOPHEN TAB 650MG DOSE (2X325MG) PO ONE ×2 (05:35→09:55)
[2023-07-03 07:56] LABS: BASO % 0.4 % (0.0-1.0); EOS # 0.2 10^3/uL (0.0-0.5); EOS % 1.8 % (0.0-3.0); HEMATOCRIT 37.7 % (36.0-47.0); HEMOGLOBIN 13.5 g/dl (12.0-15.5); LYMPH # 0.5 10^3/uL (1.5-5.0); MEAN CORPUSCULAR HEMOGLOBIN 30.2 pg (27.0-33.0); MEAN CORPUSCULAR HGB CONC 35.8 g/dl (32.0-36.5); MEAN CORPUSCULAR VOLUME 84.3 fl (80.0-96.0); MONO # 0.4 10^3/uL (0.0-0.8); NEUTROPHILS # 8.2 10^3/uL (1.5-8.5); NEUTROPHILS % 88.4 % (36.0-66.0); PLATELET COUNT, AUTOMATED 208 10^3/uL (150-450); RED BLOOD COUNT 4.47 10^6/uL (4.00-5.40); WHITE BLOOD COUNT 9.2 10^3/uL (4.0-10.0)
[2023-07-03 08:41] LABS: BLOOD UREA NITROGEN 8 MG/DL (9-23); CALCIUM LEVEL 7.7 MG/DL (8.3-10.6); CARBON DIOXIDE LEVEL 29 MMOL/L (20-31); CHLORIDE LEVEL 94 MMOL/L (98-107); CREATININE FOR GFR 0.62 MG/DL (0.55-1.30); GLOMERULAR FILTRATION RATE > 60.0 (>39); GLUCOSE, FASTING 129 MG/DL (74-106); POTASSIUM SERUM 2.4 MMOL/L (3.5-5.1); SODIUM LEVEL 134 MMOL/L (136-145)
[2023-07-03] MEDS ORDERED: POTASSIUM CHLORIDE 10MEQ SR TABLET PO ONE (09:15)
[2023-07-03] MEDS ORDERED: KCL 10MEQ/100ML SWI (KRUN) 10 MEQ in IV 1 EA IV ONE (09:15)
[2023-07-03 09:39] LABS: ALBUMIN 3.7 G/DL (3.2-5.2); ALKALINE PHOSPHATASE 93 U/L (46-116); ALT/SGPT 28 U/L (7.0-40); AST/SGOT 30 U/L (<34); BILIRUBIN,DIRECT 0.3 MG/DL (<0.4); BILIRUBIN,TOTAL 0.9 MG/DL (0.3-1.2); MAGNESIUM LEVEL 0.8 MG/DL (1.8-2.4); TOTAL PROTEIN 6.7 G/DL (5.7-8.2)
[2023-07-03] MEDS ORDERED: MAG SULF 1GM/100ML (MAG RUN) 1 GM in IV 1 EA IV ONE (09:40)
[2023-07-03 10:11] VITALS: BP 124/66; TEMP 98
== END 2023-07-03 10:38 | disposition left against medical advice (07) ==
LOC: M ED 05:13
DX: N20.1 Calculus of ureter (principal); E87.6 Hypokalemia; E83.42 Hypomagnesemia; R50.9 Fever, unspecified; I10 Essential (primary) hypertension; E78.5 Hyperlipidemia, unspecified; Z88.8 Allergy status to other drugs, medicaments and biological substances; Z79.82 Long term (current) use of aspirin; Z79.02 Long term (current) use of antithrombotics/antiplatelets; Z79.811 Long term (current) use of aromatase inhibitors; Z79.83 Long term (current) use of bisphosphonates; Z79.899 Other long term (current) drug therapy

== ENCOUNTER 2023-07-12 14:46 | Observation (INO) | payer MEDICARE, MEDICAID ==
[~2023-07-12] VITALS: Ht 162.6 cm; Wt 75.4 kg
[~2023-07-12 14:46] MED LIST changes: -ASPI81TA26 PO; -CALC500T61 PO; -CETI-24 PO; -CETI10CH PO; -FAMO20TA PO; -HYDR-3490; -MAGN400T2 PO; -TRAV2.5D OU
[2023-07-12] MEDS ORDERED: HYDR-3490 PO ×2 (15:32→17:07)
[2023-07-12] MEDS ORDERED: TRAV2.5D OU (15:32)
[2023-07-12] MEDS ORDERED: HYDR-3490 (15:32)
[2023-07-12] MEDS ORDERED: MAG SULF 1GM/100ML (MAG RUN) 1 GM in IV 1 EA IV ONE (15:40)
[2023-07-12 16:34] LABS: BLOOD UREA NITROGEN 6 MG/DL (9-23); CALCIUM LEVEL 6.5 MG/DL (8.3-10.6); CARBON DIOXIDE LEVEL 28 MMOL/L (20-31); CHLORIDE LEVEL 97 MMOL/L (98-107); CREATININE FOR GFR 0.53 MG/DL (0.55-1.30); GLOMERULAR FILTRATION RATE > 60.0 (>39); GLUCOSE, FASTING 96 MG/DL (74-106); PHOSPHORUS LEVEL 3.2 MG/DL (2.4-5.1); POTASSIUM SERUM 2.8 MMOL/L (3.5-5.1); PTH INTACT 30.9 PG/ML (18.5-88.0); SODIUM LEVEL 137 MMOL/L (136-145)
[2023-07-12] MEDS ORDERED: MED REC IN PROGRESS XX SCH (16:35)
[2023-07-12] MEDS ORDERED: ASPI81TA26 PO (16:37)
[2023-07-12] MEDS ORDERED: ACETAMINOPHEN TAB 650MG DOSE (2X325MG) PO PRN (16:55)
[2023-07-12] MEDS ORDERED: POTASSIUM CHLORIDE 10MEQ SR TABLET PO ONE ×2 (17:00→19:00)
[2023-07-12] MEDS ORDERED: CALCIUM GLUCONATE 1,000 MG in D5W MINI-BAG PLUS 100 ML IV SCH (17:00)
[2023-07-12] MEDS ORDERED: LOSA50TA28 PO (17:08)
[2023-07-12] MEDS ORDERED: CETI-24 PO (17:21)
[2023-07-12] MEDS ORDERED: OMEP40CA5 PO (17:21)
[2023-07-12] MEDS ORDERED: CETI10CH PO (17:21)
[2023-07-12] MEDS ORDERED: ATEN100T PO (17:21)
[2023-07-12] MEDS ORDERED: HOME MED LIST COMPLETE! XX SCH (17:40)
[2023-07-12] MEDS: MAG SULF 1GM/100ML (MAG RUN) 1 GM in IV 1 EA IV SCH ×3 (17:45→19:59)
[2023-07-12] MEDS: LR 1,000 ML IV SCH (17:46)
[2023-07-12] MEDS ORDERED: **hydrALAZINE HCL** 25 MG TAB PO PRN (17:55)
[2023-07-12 18:00] VITALS: BP 145/87; TEMP 98.1; O2SAT 96
[2023-07-12] MEDS ORDERED: KCL 10MEQ/100ML SWI (KRUN) 10 MEQ in IV 1 EA IV SCH (18:05)
[2023-07-12 18:50] LABS: HEMATOCRIT 34.7 % (36.0-47.0); HEMOGLOBIN 12.1 g/dl (12.0-15.5); MEAN CORPUSCULAR HEMOGLOBIN 29.8 pg (27.0-33.0); MEAN CORPUSCULAR HGB CONC 34.9 g/dl (32.0-36.5); MEAN CORPUSCULAR VOLUME 85.5 fl (80.0-96.0); PLATELET COUNT, AUTOMATED 214 10^3/uL (150-450); RED BLOOD COUNT 4.06 10^6/uL (4.00-5.40); WHITE BLOOD COUNT 9.7 10^3/uL (4.0-10.0)
[2023-07-12] MEDS: CALCIUM GLUCONATE 1,000 MG in D5W MINI-BAG PLUS 100 ML IV SCH ×2 (19:31→20:32)
[2023-07-12] MEDS: MAGNESIUM OXIDE 400MG TAB (MAG-OX) PO SCH (20:31)
[2023-07-12] MEDS: LOSARTAN 50MG TABLET PO SCH (20:31)
[2023-07-12] MEDS: CALCIUM CARBONATE 500 MG CHEW U/D PO SCH (20:32)
[2023-07-12 20:49] VITALS: BP 132/69; TEMP 97.9; O2SAT 94
[2023-07-13 05:10] LABS: BASO # 0.1 10^3/uL (0.0-0.2); BASO % 0.7 % (0.0-1.0); EOS # 0.4 10^3/uL (0.0-0.5); EOS % 4.8 % (0.0-3.0); HEMATOCRIT 33.6 % (36.0-47.0); HEMOGLOBIN 11.8 g/dl (12.0-15.5); LYMPH # 1.6 10^3/uL (1.5-5.0); LYMPH % 18.3 % (24.0-44.0); MEAN CORPUSCULAR HEMOGLOBIN 29.8 pg (27.0-33.0); MEAN CORPUSCULAR HGB CONC 35.1 g/dl (32.0-36.5); MEAN CORPUSCULAR VOLUME 84.8 fl (80.0-96.0); MONO # 0.7 10^3/uL (0.0-0.8); MONO % 8.7 % (2.0-8.0); NEUTROPHILS # 5.7 10^3/uL (1.5-8.5); NEUTROPHILS % 67.1 % (36.0-66.0); PLATELET COUNT, AUTOMATED 199 10^3/uL (150-450); RED BLOOD COUNT 3.96 10^6/uL (4.00-5.40); WHITE BLOOD COUNT 8.5 10^3/uL (4.0-10.0)
[2023-07-13 05:37] LABS: BLOOD UREA NITROGEN < 5 MG/DL (9-23); CALCIUM LEVEL 7.6 MG/DL (8.3-10.6); CARBON DIOXIDE LEVEL 26 MMOL/L (20-31); CHLORIDE LEVEL 100 MMOL/L (98-107); CREATININE FOR GFR 0.47 MG/DL (0.55-1.30); GLOMERULAR FILTRATION RATE > 60.0 (>39); GLUCOSE, FASTING 106 MG/DL (74-106); POTASSIUM SERUM 3.2 MMOL/L (3.5-5.1); SODIUM LEVEL 136 MMOL/L (136-145)
[2023-07-13 05:40] VITALS: BP 136/72; TEMP 98.4; O2SAT 95
[2023-07-13] MEDS: LR 1,000 ML IV SCH (06:44)
[2023-07-13] MEDS: KCL 10MEQ/100ML SWI (KRUN) 10 MEQ in IV 1 EA IV SCH ×2 (07:40→08:40)
[2023-07-13] MEDS ORDERED: CALCIUM GLUCONATE 1,000 MG in D5W MINI-BAG PLUS 100 ML IV ONE (08:00)
[2023-07-13 08:19] LABS: ALKALINE PHOSPHATASE 81 U/L (46-116); ALT/SGPT 25 U/L (7.0-40); AST/SGOT 30 U/L (<34); BILIRUBIN,TOTAL 0.5 MG/DL (0.3-1.2); BLOOD UREA NITROGEN < 5 MG/DL (9-23); CALCIUM LEVEL 7.6 MG/DL (8.3-10.6); CARBON DIOXIDE LEVEL 26 MMOL/L (20-31); CHLORIDE LEVEL 100 MMOL/L (98-107); CREATININE FOR GFR 0.47 MG/DL (0.55-1.30); GLOMERULAR FILTRATION RATE > 60.0 (>39); GLUCOSE, FASTING 147 MG/DL (74-106); POTASSIUM SERUM 3.4 MMOL/L (3.5-5.1); SODIUM LEVEL 136 MMOL/L (136-145); TOTAL PROTEIN 5.7 G/DL (5.7-8.2)
[2023-07-13] MEDS: CALCIUM CARBONATE 500 MG CHEW U/D PO SCH (08:52)
[2023-07-13] MEDS: MAGNESIUM OXIDE 400MG TAB (MAG-OX) PO SCH (08:52)
[2023-07-13 08:56] VITALS: BP 150/72
[2023-07-13] MEDS: LOSARTAN 50MG TABLET PO SCH (08:56)
[2023-07-13] MEDS ORDERED: ASPIRIN 81MG ENTERIC TABLET PO SCH (09:00)
[2023-07-13] MEDS ORDERED: POTASSIUM CHLORIDE 10MEQ SR TABLET PO SCH (09:00)
[2023-07-13] MEDS ORDERED: atenoloL 50 MG TAB PO SCH (09:00)
[2023-07-13] MEDS ORDERED: ATORVASTATIN 20 MG TAB PO SCH (09:00)
[2023-07-13] MEDS ORDERED: ENOXAPARIN 40MG/0.4ML SYRINGE (J1650 PER 10MG) SC SCH (09:00)
[2023-07-13] MEDS ORDERED: FAMOTIDINE 20 MG TAB PO SCH (09:00)
[2023-07-13] MEDS ORDERED: FAMO20TA PO (11:12)
[2023-07-13] MEDS ORDERED: MAGN400T2 PO (11:12)
[2023-07-13] MEDS ORDERED: CALC500T61 PO (11:12)
[2023-07-13 11:56] LABS: IONIZED CALCIUM 4.3 MG/DL (4.5-5.3)
== END 2023-07-13 13:17 | disposition home or self-care (01) ==
LOC: M ED 14:46 → M ED INP 14:47 → ENRESERV 17:18 → M MSPAV 17:56
PROVIDERS: ADMIT Internal Medicine; ATTEND Internal Medicine
DX: E87.8 Other disorders of electrolyte and fluid balance, not elsewhere classified (principal); E83.51 Hypocalcemia; E87.6 Hypokalemia; E83.42 Hypomagnesemia; Z79.82 Long term (current) use of aspirin; Z79.899 Other long term (current) drug therapy; I10 Essential (primary) hypertension; E78.5 Hyperlipidemia, unspecified; M16.12 Unilateral primary osteoarthritis, left hip; R25.2 Cramp and spasm
CPT/HCPCS: 36415; 80048; 80053; 82330; 83735; 83970; 84100; 84132; 85025; 85027; 87635; 93005; 96360; 96361; 99284; G0378; J0612; J3475

== ENCOUNTER → 2023-07-12 | Outpatient (CLI) | payer MEDICARE, MEDICAID ==
[~2023-07-12] MED LIST changes: +ASPI81TA26 PO; +CALC500T61 PO; +CETI-24 PO; +CETI10CH PO; +FAMO20TA PO; +HYDR-3490; +MAGN400T2 PO; +TRAV2.5D OU
[2023-07-12 11:56] LABS: BLOOD UREA NITROGEN 7 MG/DL (9-23); CALCIUM LEVEL 6.8 MG/DL (8.3-10.6); CARBON DIOXIDE LEVEL 30 MMOL/L (20-31); CHLORIDE LEVEL 98 MMOL/L (98-107); CREATININE FOR GFR 0.58 MG/DL (0.55-1.30); GLOMERULAR FILTRATION RATE > 60.0 (>39); GLUCOSE, FASTING 95 MG/DL (74-106); MAGNESIUM LEVEL 0.7 MG/DL (1.8-2.4); POTASSIUM SERUM 2.9 MMOL/L (3.5-5.1); SODIUM LEVEL 139 MMOL/L (136-145)
== END ==
LOC: M PLALAB 07:39
PROVIDERS: ATTEND Nurse Practitioner Family
DX: E87.6 Hypokalemia (principal); E83.42 Hypomagnesemia

== ENCOUNTER → 2023-07-16 | Outpatient (CLI) | payer MEDICARE, MEDICAID ==
[~2023-07-16] MED LIST changes: +ASPI81TA26 PO; +CALC500T61 PO; +CETI-24 PO; +CETI10CH PO; +FAMO20TA PO; +HYDR-3490; +MAGN400T2 PO; +TRAV2.5D OU
[2023-07-16 13:48] LABS: BASO # 0.1 10^3/uL (0.0-0.2); BASO % 0.6 % (0.0-1.0); EOS # 0.7 10^3/uL (0.0-0.5); EOS % 6.5 % (0.0-3.0); HEMOGLOBIN 13.9 g/dl (12.0-15.5); LYMPH # 2.5 10^3/uL (1.5-5.0); LYMPH % 22.8 % (24.0-44.0); MEAN CORPUSCULAR HEMOGLOBIN 30.4 pg (27.0-33.0); MEAN CORPUSCULAR HGB CONC 33.9 g/dl (32.0-36.5); MEAN CORPUSCULAR VOLUME 89.7 fl (80.0-96.0); MONO # 1.1 10^3/uL (0.0-0.8); MONO % 10.4 % (2.0-8.0); NEUTROPHILS # 6.5 10^3/uL (1.5-8.5); NEUTROPHILS % 59.2 % (36.0-66.0); PLATELET COUNT, AUTOMATED 329 10^3/uL (150-450); RED BLOOD COUNT 4.57 10^6/uL (4.00-5.40); WHITE BLOOD COUNT 10.9 10^3/uL (4.0-10.0)
[2023-07-16 14:28] LABS: ALBUMIN 3.6 G/DL (3.2-5.2); ALKALINE PHOSPHATASE 101 U/L (46-116); ALT/SGPT 28 U/L (7.0-40); AST/SGOT 28 U/L (<34); BILIRUBIN,TOTAL 0.5 MG/DL (0.3-1.2); BLOOD UREA NITROGEN 7 MG/DL (9-23); CARBON DIOXIDE LEVEL 27 MMOL/L (20-31); CHLORIDE LEVEL 97 MMOL/L (98-107); CREATININE FOR GFR 0.57 MG/DL (0.55-1.30); GLOMERULAR FILTRATION RATE > 60.0 (>39); GLUCOSE, FASTING 96 MG/DL (74-106); MAGNESIUM LEVEL 1.9 MG/DL (1.8-2.4); POTASSIUM SERUM 5.6 MMOL/L (3.5-5.1); SODIUM LEVEL 129 MMOL/L (136-145); TOTAL PROTEIN 7.2 G/DL (5.7-8.2)
== END ==
LOC: M PLALAB 10:06
PROVIDERS: ATTEND Nurse Practitioner Family
DX: R06.02 Shortness of breath (principal); E87.6 Hypokalemia; E83.42 Hypomagnesemia

== ENCOUNTER → 2023-08-09 | Outpatient (REF) | payer MEDICARE, MEDICAID ==
[2023-08-09 12:16] LABS: CREATININE,RANDOM URINE 43.7 MG/DL
== END ==
LOC: M LAB REF 11:23
PROVIDERS: ATTEND Internal Medicine Nephrology
DX: E87.6 Hypokalemia (principal)

== ENCOUNTER → 2023-12-17 | Outpatient (CLI) | payer MEDICARE, MEDICAID ==
[2023-12-17 10:59] LABS: BASO % 0.4 % (0.0-1.0); EOS # 0.2 10^3/uL (0.0-0.5); EOS % 2.3 % (0.0-3.0); HEMATOCRIT 40.5 % (36.0-47.0); HEMOGLOBIN 13.6 g/dl (12.0-15.5); LYMPH # 1.8 10^3/uL (1.5-5.0); LYMPH % 22.1 % (24.0-44.0); MEAN CORPUSCULAR HEMOGLOBIN 30.4 pg (27.0-33.0); MEAN CORPUSCULAR HGB CONC 33.6 g/dl (32.0-36.5); MEAN CORPUSCULAR VOLUME 90.6 fl (80.0-96.0); MONO # 0.7 10^3/uL (0.0-0.8); MONO % 8.3 % (2.0-8.0); NEUTROPHILS # 5.4 10^3/uL (1.5-8.5); NEUTROPHILS % 66.7 % (36.0-66.0); PLATELET COUNT, AUTOMATED 261 10^3/uL (150-450); RED BLOOD COUNT 4.47 10^6/uL (4.00-5.40); WHITE BLOOD COUNT 8.1 10^3/uL (4.0-10.0)
[2023-12-17 11:14] LABS: ALBUMIN 3.7 G/DL (3.2-5.2); ALKALINE PHOSPHATASE 96 U/L (46-116); ALT/SGPT 40 U/L (7.0-40); AST/SGOT 34 U/L (<34); BILIRUBIN,TOTAL 0.5 MG/DL (0.3-1.2); BLOOD UREA NITROGEN 7 MG/DL (9-23); CALCIUM LEVEL 8.7 MG/DL (8.3-10.6); CARBON DIOXIDE LEVEL 31 MMOL/L (20-31); CHLORIDE LEVEL 100 MMOL/L (98-107); CHOLESTEROL LEVEL 197 MG/DL (<200); CHOLESTEROL RISK RATIO 2.73 (<5); CREATININE FOR GFR 0.71 MG/DL (0.55-1.30); GLOMERULAR FILTRATION RATE > 60.0 (>39); GLUCOSE, FASTING 94 MG/DL (74-106); LDL CHOLESTEROL 103.6 MG/DL (<100); POTASSIUM SERUM 3.9 MMOL/L (3.5-5.1); SODIUM LEVEL 137 MMOL/L (136-145); TOTAL PROTEIN 7.2 G/DL (5.7-8.2); TRIGLYCERIDES LEVEL 107 MG/DL (<150)
== END ==
LOC: M PLALAB 07:41
PROVIDERS: ATTEND Nurse Practitioner Family
DX: I10 Essential (primary) hypertension (principal)

== ENCOUNTER → 2024-12-15 | Outpatient (CLI) | payer MEDICARE, MEDICAID ==
[~2024-12-15] MED LIST changes: +ONDA-282 PO; -ONDA4TAB6 PO
[2024-12-15 11:12] LABS: ALBUMIN 3.7 G/DL (3.2-5.2); ALKALINE PHOSPHATASE 95 U/L (35-104); ALT/SGPT 35 U/L (7.0-40); AST/SGOT 32 U/L (<34); BILIRUBIN,TOTAL 0.5 MG/DL (0.3-1.2); BLOOD UREA NITROGEN 9 MG/DL (9-23); CALCIUM LEVEL 9.7 MG/DL (8.3-10.6); CARBON DIOXIDE LEVEL 29 MMOL/L (20-31); CHLORIDE LEVEL 94 MMOL/L (98-107); CHOLESTEROL LEVEL 212 MG/DL (<200); CHOLESTEROL RISK RATIO 2.51 (<5); CREATININE FOR GFR 0.66 MG/DL (0.55-1.30); GLOMERULAR FILTRATION RATE > 90.0 (>39); GLUCOSE, FASTING 94 MG/DL (74-106); HDL CHOLESTEROL 84.4 MG/DL (>40); NON-HDL-C 127.6 MG/DL; POTASSIUM SERUM 4.5 MMOL/L (3.5-5.1); SODIUM LEVEL 133 MMOL/L (136-145); TRIGLYCERIDES LEVEL 118 MG/DL (<150)
== END ==
LOC: M PLALAB 08:07
PROVIDERS: ATTEND Nurse Practitioner Family
DX: I10 Essential (primary) hypertension (principal)

== ENCOUNTER → 2025-01-13 | Outpatient (CLI) | payer MEDICARE, MEDICAID ==
[~2025-01-13] MED LIST changes: +CVS10CAP8 PO; -MELA10CA2 PO
== END ==
LOC: M PLALAB 10:07
PROVIDERS: ATTEND Nurse Practitioner Family
DX: Z00.00 Encounter for general adult medical examination without abnormal findings (principal)

== ENCOUNTER 2025-03-10 07:13 | Day surgery (SDC) | payer MEDICARE, MEDICAID ==
[~2025-03-10] VITALS: Ht 162.6 cm; Wt 74.7 kg
[~2025-03-10 07:13] MED LIST changes: +FERR325T19 PO; +OMEP40CA4 PO
[2025-03-10] MEDS ORDERED: SPIR-10 PO (07:40)
[2025-03-10] MEDS ORDERED: LIDOCAINE 2% 100 MG/5 ML SDV (FOR ANES.) As Ordered ONE (08:45)
[2025-03-10 09:11] VITALS: BP 138/70; O2SAT 97
== END 2025-03-10 09:27 | disposition home or self-care (01) ==
LOC: M OPP 07:13
PROVIDERS: ATTEND Surgery
DX: K44.9 Diaphragmatic hernia without obstruction or gangrene (principal); K29.70 Gastritis, unspecified, without bleeding; Z79.82 Long term (current) use of aspirin; Z79.899 Other long term (current) drug therapy
CPT/HCPCS: 43239; 88305; J3010

== ENCOUNTER 2025-04-27 11:20 | Day surgery (SDC) | payer MEDICARE, MEDICAID ==
[~2025-04-27] VITALS: Ht 162.6 cm; Wt 75.3 kg
[~2025-04-27 11:20] MED LIST changes: +AMLO1TAB24 PO; +LR 1,000 ML IV SCH; +SPIR-10 PO; +VENTAER INH
[2025-04-27] MEDS: CYCLOPENTOLATE 1% OPHTH SOLN 2 ML BTL OD SCH (12:23)
[2025-04-27] MEDS: TETRACAINE 0.5% OPHTH SOLN 4ML OD SCH (12:23)
[2025-04-27] MEDS: PHENYLEPHRINE 2.5% OPHTH SOL 2ML OD SCH (12:23)
[2025-04-27] MEDS: FLURBIPROFEN 0.03% OPHTH SOLN 2.5 ML OD SCH (12:23)
[2025-04-27] MEDS ORDERED: MIDAZOLAM INJ 2 MG/2 ML VIAL As Ordered ONE (13:25)
[2025-04-27] MEDS: LIDOCAINE 1% SDV 5 ML VIAL As Ordered ONE (13:40)
[2025-04-27] MEDS: CEFUROXIME 1 MG/0.1 ML INTRACAMERAL INJ As Ordered ONE (13:40)
[2025-04-27 14:12] VITALS: BP 164/74; TEMP 97.8; O2SAT 97
== END 2025-04-27 14:19 | disposition home or self-care (01) ==
LOC: M SDC 11:20
PROVIDERS: ATTEND Ophthalmology
DX: H25.9 Unspecified age-related cataract (principal); H40.1111 Primary open-angle glaucoma, right eye, mild stage; I10 Essential (primary) hypertension; Z79.899 Other long term (current) drug therapy; Z96.642 Presence of left artificial hip joint
CPT/HCPCS: 66991; C1783; J0697; J2250; J3010; V2632

== ENCOUNTER 2025-05-18 07:49 | Day surgery (SDC) | payer MEDICARE, MEDICAID ==
[~2025-05-18] VITALS: Ht 162.6 cm; Wt 76.8 kg
[~2025-05-18 07:49] MED LIST changes: +CYCLOPENTOLATE 1% OPHTH SOLN 2 ML BTL OS SCH; +MIDAZOLAM INJ 2 MG/2 ML VIAL As Ordered ONE
[2025-05-18] MEDS: FLURBIPROFEN 0.03% OPHTH SOLN 2.5 ML OS SCH (09:03)
[2025-05-18] MEDS: TETRACAINE 0.5% OPHTH SOLN 4ML OS SCH (09:03)
[2025-05-18] MEDS: PHENYLEPHRINE 2.5% OPHTH SOL 2ML OS SCH (09:03)
[2025-05-18] MEDS: LIDOCAINE 1% SDV 5 ML VIAL As Ordered ONE (09:54)
[2025-05-18] MEDS: CEFUROXIME 1 MG/0.1 ML INTRACAMERAL INJ As Ordered ONE (09:55)
[2025-05-18 10:16] VITALS: BP 161/74; TEMP 97.2; O2SAT 96
== END 2025-05-18 10:38 | disposition home or self-care (01) ==
LOC: M SDC 07:49
PROVIDERS: ATTEND Ophthalmology
DX: H25.12 Age-related nuclear cataract, left eye (principal); H40.1121 Primary open-angle glaucoma, left eye, mild stage; I10 Essential (primary) hypertension; E78.5 Hyperlipidemia, unspecified; K21.9 Gastro-esophageal reflux disease without esophagitis; Z79.82 Long term (current) use of aspirin; Z79.899 Other long term (current) drug therapy; Z79.51 Long term (current) use of inhaled steroids
CPT/HCPCS: 66991; C1783; J0697; J2250; J3010; V2632

== ENCOUNTER → 2025-08-07 | Outpatient (CLI) | payer MEDICARE, MEDICAID ==
[~2025-08-07] MED LIST changes: -CYCLOPENTOLATE 1% OPHTH SOLN 2 ML BTL OS SCH; -LR 1,000 ML IV SCH; -MIDAZOLAM INJ 2 MG/2 ML VIAL As Ordered ONE
[2025-08-07 10:56] LABS: BASO # 0.1 10^3/uL (0.0-0.2); BASO % 0.6 % (0.0-1.0); EOS # 0.2 10^3/uL (0.0-0.5); EOS % 3.0 % (0.0-3.0); LYMPH # 2.4 10^3/uL (1.5-5.0); LYMPH % 31.0 % (24.0-44.0); MONO # 1.0 10^3/uL (0.0-0.8); MONO % 12.6 % (2.0-8.0); NEUTROPHILS # 4.1 10^3/uL (1.5-8.5); NEUTROPHILS % 52.2 % (36.0-66.0); PLATELET COUNT, AUTOMATED 317 10^3/uL (150-450)
[2025-08-07 11:04] LABS: ALT/SGPT 32 U/L (7.0-40); AST/SGOT 25 U/L (<34); CALCIUM LEVEL 9.2 MG/DL (8.3-10.6); CARBON DIOXIDE LEVEL 29 MMOL/L (20-31); CHLORIDE LEVEL 95 MMOL/L (98-107); CREATININE FOR GFR 0.69 MG/DL (0.55-1.30); GLOMERULAR FILTRATION RATE > 90.0 (>39); IRON (FE) 109 UG/DL (50-170); PERCENT SATURATION 34.2 % (13.2-45.0); POTASSIUM SERUM 4.3 MMOL/L (3.5-5.1); SODIUM LEVEL 132 MMOL/L (136-145)
== END ==
LOC: M PLALAB 08:00
PROVIDERS: ATTEND Nurse Practitioner Family
DX: I10 Essential (primary) hypertension (principal); D50.9 Iron deficiency anemia, unspecified